=== PATIENT | male | born 1945 | race Caucasian/White ===

== ENCOUNTER → 2021-04-06 11:33 | Outpatient (BNVA) | payer MEDICARE, SELFPAY | PROVIDERS: Family Provider Family Medicine; Visit Provider Family Medicine | DX: I10 Essential (primary) hypertension (principal); Z00.00 Encounter for general adult medical examination without abnormal findings; Z85.828 Personal history of other malignant neoplasm of skin; G25.0 Essential tremor; K21.9 Gastro-esophageal reflux disease without esophagitis; Z68.25 Body mass index [BMI] 25.0-25.9, adult; F17.211 Nicotine dependence, cigarettes, in remission | CPT/HCPCS: 80053; 85025 ==

== ENCOUNTER 2023-12-06 10:26 | Outpatient (CLI) | payer MEDICARE, SELFPAY ==
--- NOTE | 2023-12-06 10:31 | XR_ITS ---
WS: [id number] XR thoracic spine 3V* [id number] REASON FOR EXAM: trauma 5 days prior, suspicion T10 Compression frx FINDINGS: Mild thoracic scoliosis convex right. Mild dorsal kyphosis. There is a mild concave compression deformity of the most inferior vertebral body imaged on the later al. Potentially this could represent an acute compression fracture of L1 however without demonstratin g the vertebral body below the compression deformity the level is not quite certain. A PA and lateral thoracolumbar junction images recommended to clearly define the level of abnormality. IMPRESSION: Probable acute compression fracture as above.
== END 2023-12-06 10:27 | disposition home or self-care (01) ==
LOC: RAD 10:27
PROVIDERS: Family Provider Family Medicine; PCP Family Medicine; Visit Provider Family Medicine
DX: S22.079A Unspecified fracture of T9-T10 vertebra, initial encounter for closed fracture (principal); X58.XXXA Exposure to other specified factors, initial encounter
CPT/HCPCS: 72072

== ENCOUNTER 2023-12-08 10:38 | Outpatient (CLI) | payer MEDICARE, SELFPAY ==
--- NOTE | 2023-12-08 10:43 | XR_ITS ---
WS: [id number] XR lumbar spine 2-3V* [id number] REASON FOR EXAM: S32.010A - Wedge compression fracture of first lumbar luisa... FINDINGS: Compression of the superior endplate of L1 with overriding of the remainder of the L1 vertebral body. Compatible with subacute compression fracture. The remainder of the lumbar examination demonstrates mild degenerative spondylosis without significan t malalignment. IMPRESSION: Subacute compression fracture of L1.
== END 2023-12-08 10:39 | disposition home or self-care (01) ==
LOC: RAD 10:39
PROVIDERS: Family Provider Family Medicine; PCP Family Medicine; Visit Provider Family Medicine
DX: S32.010A Wedge compression fracture of first lumbar vertebra, initial encounter for closed fracture (principal); X58.XXXA Exposure to other specified factors, initial encounter
CPT/HCPCS: 72100

== ENCOUNTER 2023-12-11 12:29 | Inpatient (IN) | payer MEDICARE, SELFPAY ==
[2023-12-11] VITALS (12 sets, daily range): BP systolic 125–178; BP diastolic 55–89; PULSE 69–92; RESP 16–18; TEMP 37–37.1; O2SAT 93–99; BMI 27.4
--- NOTE | 2023-12-11 12:51 | CTR_ITS ---
PROCEDURE INFORMATION: Exam: CT Lumbar Spine Without Contrast Exam date and time: 12/11/2023 1:28 PM Age: 78 years old Clinical indication: Low back pain; Patient HX: Back pain, fecal incontinence, ; additional info: Back pain - fecal incontinence TECHNIQUE: Imaging protocol: Computed tomography of the lumbar spine without contrast. Radiation optimization: All CT scans at this facility use at least one of these dose optimization techniques: automated exposure control; mA and/or kV adjustment per patient size (includes targeted exams where dose is matched to clinical indication); or iterative reconstruction. COMPARISON: CR XR lumbar spine 2-3V* [id number] 12/08/2023 11:15 AM RADIATION DOSE METRICS: Total DLP (mGy-cm): 870.3 FINDINGS: Bones/joints: L1 superior endplate compression deformity with mild height loss, no significant retropulsion. Mild multilevel spondylosis and facet arthropathy elsewhere. No severe canal stenosis. Soft tissues: No acute findings. CT/CT lumbar spine wo con* [id number] IMPRESSION: L1 compression deformity without retropulsion, age indeterminate.
--- NOTE | 2023-12-11 13:00 | ED_ITS ---
HPI - Abdominal Pain 2 General: Chief Complaint: Abdominal Pain Stated Complaint: severe back pain, loss control of bowel movements Time Seen by Provider: 12/11/23 12:51 Source: patient Mode of arrival: ambulatory History of Present Illness: 78-year-old male presents emergency room complaining of back pain. He was seen in an outside clinic after he had been pulling some wire felt a snapping sensation in his back and began to have severe pain they diagnosed compression fracture discharged home with pain medications. He is noticing a little bit of difficulty with urination and reports initially was constipated then he had a couple of episodes of fecal incontinence. He still has moderate amount of pain with some radiation of the lower extremities but has normal sensation and movement in the lower extremities at this time. MD elicited complaint: abdominal pain Associated Symptoms: Reports fecal incontinence; Denies anorexia, belching, bloating, change in bowel habits, change in stool character, chills, coffee ground emesis, constipation, GI cramping, diarrhea, dyspepsia, dysuria, excessive flatus, fever(s), heartburn, hematochezia, hematuria, hematemesis, loose stools, melena, nausea, poor appetite, syncope and vomiting Review of Systems 2 Const: Denies: fever(s) or chills Card: Denies: chest pain or syncope Resp: Denies: dyspnea GI: Reports: fecal incontinence; Denies: abdominal pain, nausea, vomiting, hematemesis, coffee ground emesis, heartburn, diarrhea, constipation, bloating, GI cramping, belching, excessive flatus, change in bowel habits, change in stool character, hematochezia or melena : Denies: dysuria, urinary frequency, urinary urgency or hematuria Musc: Reports: back pain; Denies: neck pain Skin/Breast: Denies: rash PFSH ED 2 PFSH: Medical History 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 GERD without esophagitis Essential tremor Social History Smoking and tobacco/nicotine status: former use of tobacco/nicotine Alcohol intake: current Substance/Drug Use: never Physical Exam 2 Const: GENERAL APPEARANCE: cooperative and comfortable O RIENTATION/CONSCIOUSNESS: Yes awake, Yes oriented to person, Yes oriented to place and Yes oriented to time HENMT: COMMON NORMALS: normocephalic, atraumatic and hearing grossly normal bilaterally HEAD & SCALP: normocephalic and atraumatic Resp: COMMON NORMALS: normal respiratory effort, No retractions, No use of accessory muscles and clear to auscultation bilaterally AUSCULTATION: clear to auscultation bilaterally Cardio: COMMON NORMALS: regular rate, regular rhythm and No murmurs present (Cardio) RATE: regular rate RHYTHM: regular rhythm GI: COMMON NORMALS: Soft to palpation and No hepatosplenomegaly present A USCULTATION: Yes normoactive bowel sounds PALPATION: Yes Soft to palpation, No Tenderness to palpation present (GI), No Guarding due to palpation present (GI) and Yes No hepatosplenomegaly present Extremity: COMMON NORMALS: normal to inspection, capillary refill normal, no clubbing, cyanosis or edema, no calf tenderness and no pedal edema Neuro: SENSORIUM/ORIENTATION: Yes oriented to person, Yes oriented to place and Yes oriented to time Skin: COMMON NORMALS: no rashes or lesions noted GENERAL SKIN EXAM: no rashes or lesions noted Course 2 Vital Signs: Vital signs: Vital Signs Temperature 98.8 F 12/11/23 12:38 Pulse Rate 78 12/11/23 17:42 Respiratory Rate 16 12/11/23 12:38 Blood Pressure 155/78 12/11/23 17:42 Pulse Oximetry 98 12/11/23 17:42 Oxygen Delivery Me thod Room Air 12/11/23 17:42 MDM - Abdominal Pain Medical Decision Making CT shows compression fracture with retropulsion. We were able to arrange for an MRI. No cauda equina syndrome read out on the MRI but does show retropulsion with central canal stenosis narrowing by 30 to 40%. His symptoms of fecal incontinence are very concerning and discussed with Dr. Calderón he is not on-call today but he was kind enough to discuss with me he will be available tomorrow and will see the patient tomorrow morning on consultation will admit to Dr. Troncoso for this evening for pain control. Due to inclement weather we are not able to transfer any patients out of town at this time. We had started to make phone calls to transfer but then were informed that we were not be able to transfer because of the weather facilities we did initially call had declined to take him to did not have beds available. By seeing Dr. Calderón in the morning and patient will have access to definitive care sooner than if transferred, since it is not likely we will be able to transfer to late tomorrow morning if we would find a bed available by which time Dr. Calderón would be available to see him Medical Records I reviewed the patient's medical records. Lab Data I reviewed the patient's lab results. 12/11/23 13:05 12/11/23 13:05 Labs/Radiology: Radiology Impressions Lumbar Spine CT 12/11/23 12:51 IMPRESSION: L1 compression deformity without retropulsion, age indeterminate. Lumbar Spine MRI 12/11/23 14:03 IMPRESSION: Mild compression fracture of L1. Signal abnormality is seen throughout the vertebral body. Posterior bulging of cortex is seen producing 30-40% narrowing of the AP diameter of the canal at the mid L1 level. Edema extends into the left L1 pedicle. Overall appearance raises question of pathologic fracture related to neoplasm. If vertebral augmentation is considered, biopsy should be obtained at this time. Otherwise a follow up examination is recommended in 2-3 months. Laboratory Results WBC 16.46 10^3/uL (3.29-11.43) H 12/11/23 13:05 RBC 5.28 10^6/uL (3.85-5.65) 12/11/23 13:05 Hgb 16.00 g/dL (11.27-16.99) 12/11/23 13:05 Hct 47.6 % (37-53) 12/11/23 13:05 MCV 90.2 fl (82-101) 12/11/23 13:05 MCH 30.3 pg (27-33) 12/11/23 13:05 MCHC 33.6 g/dL (30-55) 12/11/23 13:05 RDW 12.3 % (12.1-15.1) 12/11/23 13:05 Plt Count 423 10^3/cmm (157-399) H 12/11/23 13:05 MPV 10.5 fL (7.4-10.4) H 12/11/23 13:05 Neut % (Auto) 78.5 % 12/11/23 13:05 Lymph % (Auto) 11.9 % 12/11/23 13:05 [place]bot % (Auto) 8.4 % 12/11/23 13:05 Eos % (Auto) 0.1 % 12/11/23 13:05 Baso % (Auto) 0.3 % 12/11/23 13:05 Neut # (Auto) 12.93 10^3/uL (1.8-7.7) H 12/11/23 13:05 Lymph # (Auto) 2.0 10^3/uL (0.8-4.8) 12/11/23 13:05 [place]bot # (Auto) 1.4 10^3/uL (0.2-0.9) H 12/11/23 13:05 Eos # (Auto) 0.0 10^3/uL (0.0-0.8) 12/11/23 13:05 Baso # (Auto) 0.1 10^3/uL (0.0-0.1) 12/11/23 13:05 Nucleated RBC % (auto) 0 % 12/11/23 13:05 Nucleated RBCs # 0.0 /100WBC 12/11/23 13:05 Sodium 128 mmol/L (136-145) L 12/11/23 13:05 Potassium 4.6 mmol/L (3.5-5.1) 12/11/23 13:05 Chloride 94 mmol/L (98-107) L 12/11/23 13:05 Carbon Dioxide 23 mmol/L (22-29) 12/11/23 13:05 Anion Gap 15.6 (5-19) 12/11/23 13:05 BUN 23 mg/dL (8-23) 12/11/23 13:05 Creatinine 0.9 mg/dL (0.7-1.2) 12/11/23 13:05 GFR Calculation Not Reportable 12/11/23 13:05 Glucose 157 mg/dL (65-115) H 12/11/23 13:05 Calculated Osmolality 273 mOsm/kg (285-295) L 12/11/23 13:05 Calcium 9.4 mg/dL (8.5-10.5) 12/11/23 13:05 Total Bilirubin 0.7 mg/dL (0.15-1.2) 12/11/23 13:05 AST 50 U/L (0-40) H 12/11/23 13:05 ALT 59 U/L (0-41) H 12/11/23 13:05 Alkaline Phosphatase 252 U/L (40-130) H 12/11/23 13:05 Total Protein 8.4 g/dL (6.6-8.7) 12/11/23 13:05 Albumin 3.9 g/dL (3.5-5.2) 12/11/23 13:05 Globulin 4.5 g/dL (1.3-4.6) 12/11/23 13:05 Lipase 19 U/L (13-60) 12/11/23 13:05 Urine Color Yellow (Yellow) 12/11/23 16:44 Urine Appearance Clear (CLEAR) 12/11/23 16:44 Urine pH 5 (5-7) 12/11/23 16:44 Ur Specific [place] 1.010 (1.005-1.030) 12/11/23 16:44 Urine Protein Neg (Negative) 12/11/23 16:44 Urine Glucose (UA) Norm (Normal) 12/11/23 16:44 Urine Ketones 1+ (Negative) H 12/11/23 16:44 Urine Blood Neg (Negative) 12/11/23 16:44 Urine Nitrate Negative (Negative) 12/11/23 16:44 Urine Bilirubin 1+ (Negative) H 12/11/23 16:44 Urine Urobilinogen 1 mg/dL (Negative) H 12/11/23 16:44 Ur Leukocyte Esterase Negative (Negative) 12/11/23 16:44 All radiology interpretation(s) finalized by discharge Discharge Plan Discharge Condition: Stable Prescriptions: No Action triamcinolone acetonide 0.1 % cream 1 applic topical BID PRN (Reason: itching rash) Qty: 80 2RF methocarbamol 750 mg tablet 750 mg PO Q8H Qty: 30 0RF omeprazole 20 mg capsule,delayed release(DR/EC) 20 mg PO DAILY Qty: 90 3RF propranolol 10 mg tablet See Rx Instructions .ROUTE .COMPLEX Qty: 810 2RF Dose Instruction: TAKE 3 TABLETS BY MOUTH THREE TIMES DAILY Rx Instructions: TAKE 3 TABLETS BY MOUTH THREE TIMES DAILY hydrocodone-acetaminophen 10-325 mg tablet 1 tab PO Q6H PRN (Reason: pain) 10 Days Qty: 40 0RF Referrals: Francis,Druery, MD [Primary Care Provider] - Coding Level of Care Code ED Contract Consultant for Bridger Brown
[2023-12-11 13:38] LABS: Basophils # 0.1 10^3/uL (0.0-0.1); Basophils % 0.3 %; Eosinophils % 0.1 %; Hematocrit 47.6 % (37-53); Lymphocytes % 11.9 %; Mean Corpuscular HGB Conc 33.6 g/dL (30-55); Mean Corpuscular Hemoglobin 30.3 pg (27-33); Mean Corpuscular Volume 90.2 fl (82-101); Mean Platelet Volume 10.5 fL (7.4-10.4); Monocytes # 1.4 10^3/uL (0.2-0.9); Monocytes % 8.4 %; Neutrophils # 12.93 10^3/uL (1.8-7.7); Neutrophils % 78.5 %; Nucleated Red Blood Cells % 0 %; Platelet Count 423 10^3/cmm (157-399); Red Blood Count 5.28 10^6/uL (3.85-5.65); Red Cell Distribution Width 12.3 % (12.1-15.1); White Blood Count 16.46 10^3/uL (3.29-11.43)
[2023-12-11 14:02] LABS: Alanine Aminotransferase 59 U/L (0-41); Albumin Level 3.9 g/dL (3.5-5.2); Alkaline Phosphatase 252 U/L (40-130); Anion Gap 15.6 (5-19); Aspartate Amino Transferase 50 U/L (0-40); Blood Urea Nitrogen 23 mg/dL (8-23); Calcium 9.4 mg/dL (8.5-10.5); Carbon Dioxide 23 mmol/L (22-29); Chloride 94 mmol/L (98-107); Globulin 4.5 g/dL (1.3-4.6); Glucose 157 mg/dL (65-115); Lipase 19 U/L (13-60); Osmolality Calculated 273 mOsm/kg (285-295); Potassium 4.6 mmol/L (3.5-5.1); Sodium 128 mmol/L (136-145); Total Bilirubin 0.7 mg/dL (0.15-1.2); Total Protein 8.4 g/dL (6.6-8.7)
--- NOTE | 2023-12-11 14:03 | MRR_ITS ---
PROCEDURE INFORMATION: Exam: MR Lumbar Spine Without Contrast. Exam date and time: 12/11/2023 2:36 PM Age: 78 years old Clinical indication: Other: Fecal incontenence; Low back pain; Additional info: Lumbar spine w retropulsion, fecal incontinence TECHNIQUE: Imaging protocol: Magnetic resonance imaging of the lumbar spine without contrast. COMPARISON: CT lumbar spine wo con* [id number] 12/11/2023 1:28 PM FINDINGS: Bones/joints: Lower lumbar degenerative disc disease and facet arthropathy without stenosis or neural foraminal narrowing. Mild compression fracture of L1. Signal abnormality is seen throughout the vertebral body. Posterior bulging of cortex is seen producing 30-40% narrowing of the AP diameter of the canal at the mid L1 level. Edema extends into the left L1 pedicle. Spinal cord: Conus terminates normally at L1. Soft tissues: Unremarkable. MR/MR lumbar spine wo con* [id number] IMPRESSION: Mild compression fracture of L1. Signal abnormality is seen throughout the vertebral body. Posterior bulging of cortex is seen producing 30-40% narrowing of the AP diameter of the canal at the mid L1 level. Edema extends into the left L1 pedicle. Overall appearance raises question of pathologic fracture related to neoplasm. If vertebral augmentation is considered, biopsy should be obtained at this time. Otherwise a follow up examination is recommended in 2-3 months.
[2023-12-11] MEDS: ondansetron 2 mg/ML SDV 2 mL 4 MG IVP (16:48)
[2023-12-11] MEDS: dexamethasone 10 mg/mL INJ IM (16:49)
[2023-12-11] MEDS: morphine 4 mg/mL SDV 1 mL IVP (16:55)
[2023-12-11 16:59] LABS: Add Urine Microscopic? NO; Charge for UA Resulting for Rev
[2023-12-11 17:12] LABS: Glucose Urine UA Norm (Normal); Protein Urine Neg (Negative); Urine Appearance Clear (CLEAR); Urine Color Yellow (Yellow); pH Urine 5 (5-7)
[2023-12-11 17:13] LABS: Bilirubin Urine 1+ (Negative); Blood Urine Neg (Negative); Ketones Urine 1+ (Negative); Leukocyte Esterase Urine Negative (Negative); Nitrate Urine Negative (Negative); Urobilinogen Urine 1 mg/dL (Negative)
--- NOTE | 2023-12-11 17:42 | USR_ITS ---
PROCEDURE INFORMATION: Exam: US Abdomen, Limited; Right Upper Quadrant Exam date and time: 12/11/2023 6:31 PM Age: 78 years old Clinical indication: Abdominal pain; Generalized; Additional info: Elevated lft TECHNIQUE: Imaging protocol: Real time ultrasound of the abdomen with image documentation. Limited exam focused on the right upper quadrant. COMPARISON: [place] [id number] 12/11/2023 6:16 PM FINDINGS: Liver: Liver is unremarkable in overall size. There are numerous circumscribed hypodense liver lesions of varying sizes superimposed on diffuse fatty infiltration highly suspicious for multiple liver metastasis. Gallbladder: Gallbladder is mildly distended. There is no wall thickening or pericholecystic fluid. There are no gallstones. Ultrasonic Finn sign was not recorded.. Biliary ducts: Common bile duct is not dilated measuring 5 mm. Pancreas: Pancreas is poorly visualized limiting its assessment. Right kidney: Right kidney is unremarkable. US/US gall bladder 00003 IMPRESSION: 1. Multiple hypoechoic liver lesions likely metastatic in nature superimposed on diffuse fatty infiltration. 2. Mildly distended gallbladder which is otherwise unremarkable. 3. Limited assessment of the pancreas.
--- NOTE | 2023-12-11 17:54 | CTR_ITS ---
PROCEDURE INFORMATION: Exam: CT Chest Without Contrast; Diagnostic Exam date and time: 12/11/2023 6:16 PM Age: 78 years old Clinical indication: Pain; Other: Low back; Chest pressure; Patient HX: L1 compression fracture concern for it being pathologic, HX of melanoma; Additional info: Pathologic fracture? TECHNIQUE: Imaging protocol: Diagnostic computed tomography of the chest without contrast. Radiation optimization: All CT scans at this facility use at least one of these dose optimization techniques: automated exposure control; mA and/or kV adjustment per patient size (includes targeted exams where dose is matched to clinical indication); or iterative reconstruction. COMPARISON: CR XR thoracic spine 3V* [id number] 12/06/2023 10:50 AM RADIATION DOSE METRICS: Total DLP (mGy-cm): 878.63 FINDINGS: Lungs: Minor atelectatic changes right lung base otherwise lung koenig are clear. No suspicious nodules or masses detected. Pleural spaces: Unremarkable. No pneumothorax. No pleural effusion. Heart: Heart is not significantly enlarged. No significant coronary artery calcifications. No significant pericardial effusion. Lymph nodes: Unremarkable. No enlarged lymph nodes. Vasculature: Unremarkable. No aortic aneurysm. Bones/joints: Accentuated kyphotic curvature with mild degenerative changes throughout the thoracic spine. No suspicious bone lesions detected. Soft tissues: Unremarkable. PROCEDURE INFORMATION: Exam: CT Abdomen And Pelvis Without Contrast Exam date and time: 12/11/2023 6:16 PM Age: 78 years old Clinical indication: Pain; Other: Low back; Chest pressure; Patient HX: L1 compression fracture concern for it being pathologic, HX of melanoma; Additional info: Pathologic fracture? TECHNIQUE: Imaging protocol: Computed tomography of the abdomen and pelvis without contrast. Radiation optimization: All CT scans at this facility use at least one of these dose optimization techniques: automated exposure control; mA and/or kV adjustment per patient size (includes targeted exams where dose is matched to clinical indication); or iterative reconstruction. COMPARISON: MR lumbar spine wo con* [id number] 12/11/2023 2:36 PM RADIATION DOSE METRICS: Total DLP (mGy-cm): 878.63 FINDINGS: Lungs: Lung bases are clear. Liver: Normal. No mass. Gallbladder and bile ducts: Gallbladder is mildly distended which may be due to prolonged fasting. Pancreas: Normal. No ductal dilation. Spleen: Normal. No splenomegaly. Adrenal glands: Normal. No mass. Kidneys and ureters: 4 cm left renal cyst likely benign based on density readings. Right kidney is unremarkable. Stomach and bowel: Moderate degree of retained stool throughout the colon which may reflect some degree of constipation. Scattered diverticula sigmoid colon without evidence of acute diverticulitis. Appendix: No evidence of appendicitis. Intraperitoneal space: Unremarkable. No free air. No significant fluid collection. Vasculature: Scattered atherosclerotic changes of the abdominal aorta and iliac vessels. No aortic aneurysm. Lymph nodes: Unremarkable. No enlarged lymph nodes. Urinary bladder: Unremarkable as visualized. Reproductive: Prostate gland is mildly enlarged. Bones/joints: There is a mild biconcave compression fracture of L1 vertebral body which has a mottled appearance with mixed radiolucency and sclerotic bone changes concerning for pathological fracture possibly from bone metastasis. Remainder of the osseous structures are unremarkable. Soft tissues: Unremarkable. CT/[place] [id number] IMPRESSION: 1. No acute abnormalities within the chest. 2. No evidence of metastatic disease within the chest. IMPRESSION: 1. Mild compression fracture of L1 with additional bone changes involving the vertebral body concerning for pathological fracture possibly secondary to bone metastasis. 2. Nonemergent findings as above. COMMENTS: Consistent with the [employer]'s Incidental Findings Committee white paper (J Am Estefany Radiol 2018): Any incidental renal lesion less than 1 cm or classified as too small to characterize, or any incidental cystic renal lesion characterized as simple-appearing, is likely benign. No follow-up imaging is recommended for these lesions per consensus recommendations based on imaging criteria.
[2023-12-11 18:06] LABS: Erythrocyte Sedimentation Rate 58 mm/hr (0-10)
--- NOTE | 2023-12-11 18:14 | CTR_ITS ---
PROCEDURE INFORMATION: Exam: CT Head Without Contrast Exam date and time: 12/11/2023 6:19 PM Age: 78 years old Clinical indication: Visual disturbance; Patient HX: HX melanoma and possible l1 pathologic FX; Additional info: Diplopia TECHNIQUE: Imaging protocol: Computed tomography of the head without contrast. Radiation optimization: All CT scans at this facility use at least one of these dose optimization techniques: automated exposure control; mA and/or kV adjustment per patient size (includes targeted exams where dose is matched to clinical indication); or iterative reconstruction. COMPARISON: No relevant prior studies available. RADIATION DOSE METRICS: Total DLP (mGy-cm): 1219.79 FINDINGS: Brain: There is no acute intracranial hemorrhage, cerebral edema, or midline shift. Chronic microvascular ischemic changes are seen in the periventricular white matter. Age-related cerebral and cerebellar volume loss is present. Cerebral ventricles: No hydrocephalus. Paranasal sinuses: There is no acute sinusitis. Mastoid air cells: The mastoid air cells are clear. Orbital cavities: The included orbital structures are unremarkable. Bones/joints: No acute fracture. Soft tissues: Unremarkable. Vasculature: Atherosclerotic calcifications are seen involving the cavernous carotid arteries. CT/CT head wo con* [id number] IMPRESSION: 1. No acute intracranial abnormality. 2. Atrophy and chronic deep white matter ischemic changes.
[2023-12-11 18:16] LABS: C Reactive Protein 61.8 mg/L (0.0-4.9)
--- NOTE | 2023-12-11 18:17 | P.HP_ITS ---
Providers/Chief Complaint 2 Primary Care Provider: Beau Francis MD Chief Complaint: severe back pain, loss control of bowel movements History of Present Illness Lg Crabtree is a 78 year old male with a past medical history of benign essential tremor, history of skin cancer on his back status post resection, basal cell carcinoma GERD, who presents to [facility] for acute back pain, with stool incontinence. On 12/03/2023, patient was working outside, and he was pulling on his metal wire on his fence, when he suddenly felt a pop in his back, immediately had low back pain, more on the right side, the pain did not radiate down his extremities, no numbness, no paresthesias, no difficulty walking, no saddle perianal anesthesia, no urinary continence, no bowel incontinence. Due to persistent pain, he is followed up with his primary care provider, has been on NSAIDs, without improvement of his pain, has been placed on hydrocodone, methocarbamol, however continue to have pain. The reason he comes to the emergency room tonight, the pain lower back pain has become much more severe at much more constant, now associated with stool incontinence, no urinary continence, no saddle or perianal anesthesia, no paresthesias, he walked into the emergency room, did feel unsteady on his feet, but was still able to walk into the emergency room. Lumbar MRI MR/MR lumbar spine wo con* [id number] IMPRESSION: Mild compression fracture of L1. Signal abnormality is seen throughout the vertebral body. Posterior bulging of cortex is seen producing 30-40% narrowing of the AP diameter of the canal at the mid L1 level. Edema extends into the left L1 pedicle. Overall appearance raises question of pathologic fracture related to neoplasm. If vertebral augmentation is considered, biopsy should be obtained at this time. Otherwise a follow up examination is recommended in 2-3 months. -ER provider spoke to Dr. Calderón, Dr. Calderón is on consult tomorrow, Dr. Calderón agreed to see patient tomorrow morning, there was certainly a concern for cauda equina syndrome, however there is no MRI evidence of it ER provider told me, and given that [facility] is not transferring any patients given this snowstorm outside, patient would have better luck seeing a spinal surgeon here at [facility] than wait to be possibly transfer to tertiary level center, I spoke to patient, about this, and he is agreeable to stay here at [facility], I am certainly concerned about his bowel incontinence, but he does not have any other alarm symptoms, his pain is currently under control, and I have messaged Dr. Calderón and is agreed to see patient in the morning, patient has received Decadron, has received pain control, patient understands morbidity mortality associated with his MRI findings, discussed risk and benefits, shared decision making, he voiced understanding, all questions answered, agreed to stay here at [facility] -On examination, patient has significant abdominal distention, with fluid wave present, he denies a history of alcoholism, he tells me that typically it takes him a few weeks to drink a sixpack of alcohol, his white count was 16,000 he has elevated AST at 50, ALT of 59 elevated alk phos of 252, bilirubin within normal limits, on examination patient has significant right upper quadrant tenderness, Patient also tells me that he has been having intermittent diplopia, denies any facial droop, no slurring of words, no focal weakness, no focal paresthesias, he has been noticing it for the last 24 hours, no headache, no blurry vision Review of Systems 2 Card: Denies: chest pain Resp: Denies: dyspnea GI: Reports: abdominal pain and nausea : Reports: difficulty urinating; Denies: flank pain Musc: Reports: back pain Neuro: Denies: headache(s), numbness in extremities, weakness in extremities, lack of coordination, difficulty walking, frequent falls, confusion, Slurred speech present, difficulty communicating thoughts, seizure-like activity or restless legs Endo: Denies: polyuria Medications/Allergies Home Medications Medication Instructions Recorded Confirmed Last Taken Type triamcinolone acetonide 0.1 % 1 applic topical BID PRN itching 08/10/21 12/06/23 Unknown Rx topical cream rash #80 grams omeprazole 20 mg capsule,delayed 20 mg PO DAILY #90 caps 03/29/23 12/06/23 Unknown Rx release propranolol 10 mg tablet See Rx Instructions .Route 09/08/23 12/06/23 Unknown Rx .COMPLEX #810 tabs methocarbamol 750 mg tablet 750 mg PO Q8H #30 tabs 12/03/23 12/06/23 Unknown Rx hydrocodone 10 mg-acetaminophen 1 tab PO Q6H PRN pain 10 days #40 12/07/23 Unknown Rx 325 mg tablet tabs Allergies Allergy/AdvReac Type Severity Reaction Status Date / Time No Known Allergies Allergy Verified 12/06/23 09:28 PFSH Acute 2 PFSH: Medical History 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 GERD without esophagitis Essential tremor Social History Smoking and tobacco/nicotine status: former use of tobacco/nicotine Alcohol intake: current Substance/Drug Use: never Vitals/I&O/Wt Last Vital Signs Temp 98.8 F 12/11/23 12:38 Pulse 78 12/11/23 17:42 Resp 16 12/11/23 12:38 BP 155/78 12/11/23 17:42 Pulse Ox 98 12/11/23 17:42 O2 Del Method Room Air 12/11/23 17:42 Weight last 48 hrs Weight 77.111 kg Physical Exam 2 Const: COMMON NORMALS: no acute distress and patient oriented x3 HENMT: COMMON NORMALS: normocephalic HEAD & SCALP: normocephalic Eye: COMMON NORMALS: Equal, round and reactive pupils present and EOMs intact bilaterally Neck/C-Spine: COMMON NORMALS: no JVD Lymph: LYMPHATIC: no lymphadenopathy noted Resp: COMMON NORMALS: normal respiratory effort, No retractions, No use of accessory muscles and clear to auscultation bilaterally AUSCULTATION: clear to auscultation bilaterally Cardio: COMMON NORMALS: no JVD, regular rate, regular rhythm, S1 normal heart sound present and S2 normal heart sound present RATE: regular rate RHYTHM: regular rhythm HEART SOUNDS: S1 normal heart sound present and S2 normal heart sound present GI: COMMON NORMALS: Normal to inspection, nondistended, normoactive bowel sounds present, Soft to palpation, non-tender, No hepatosplenomegaly present, no masses and no bruits PALPATION: Yes Soft to palpation Extremity: COMMON NORMALS: capillary refill normal, no clubbing, cyanosis or edema, no calf tenderness and no pedal edema Neuro: COMMON NORMALS: patient oriented x3, CN's II-XII intact bilaterally, moves all extremities and no focal motor deficits OTHER: Good strength in bilateral lower extremities, equal, no paresthesias, no loss of sensation, bilateral lower extremity to fine touch Psych: COMMON NORMALS: mental status grossly normal Data 12/11/23 13:05 12/11/23 13:05 A&P Assessment and plan (1) Compression fracture of L1 lumbar vertebra: (2) Intractable pain: (3) Stool incontinence: (4) Right upper quadrant pain: (5) Diplopia: Plan L1 compression vertebral fracture -With intractable pain -With stool incontinence MR/MR lumbar spine wo con* [id number] IMPRESSION: Mild compression fracture of L1. Signal abnormality is seen throughout the vertebral body. Posterior bulging of cortex is seen producing 30-40% narrowing of the AP diameter of the canal at the mid L1 level. Edema extends into the left L1 pedicle. Overall appearance raises question of pathologic fracture related to neoplasm. If vertebral augmentation is considered, biopsy should be obtained at this time. Otherwise a follow up examination is recommended in 2-3 months. Plan -Dr. Calderón has been consulted, will see patient in the morning -N.p.o. midnight -Hold Lovenox for DVT prophylaxis and plans for surgery tomorrow, SCDs for DVT prophylaxis -Decadron 10 mg IV push every 24 hours -Morphine 2 mg IV push every 4 as needed for pain -Full code SCDs for DVT prophylaxis Place Hansen catheter Right upper quadrant pain, with transaminitis, elevated alk phos -CT scan abdomen pelvis -Upper quadrant ultrasound Concerns for pathologic fracture -History of skin cancer, history of smoking -CT chest abdomen pelvis, Complaints of diplopia -NIH stroke scale, neurochecks, aspiration precautions -No facial droop, slurring words, no focal weakness, NIH stroke scale 0 -CT of the head Attestations 2 Medical Necessity Statement*: Patient requires hospitalization, inpatient, greater than 2 midnights, for right upper quadrant pain, concern for pathologic fracture, diplopia, L1 compression vertebral fracture with stool incontinence Diagnoses Compression fracture of L1 lumbar vertebra S32.010A Intractable pain R52 Stool incontinence R15.9 Right upper quadrant pain R10.11 Diplopia H53.2
[2023-12-11 18:23] LABS: Procalcitonin 0.37 ng/mL (0-0.5)
[2023-12-11 18:45] LABS: INR 1.08 (0.8-1.2)
[2023-12-11] MEDS: sodium chloride 0.9% 1,000 ML 100 ML IV (21:07)
[2023-12-11] MEDS: pantoprazole 40 mg SDV IVP (21:08)
[2023-12-11] MEDS: morphine 4 mg/mL SDV 1 mL 2 MG IVP (21:08)
[2023-12-11 21:27] LABS: Estmated Average Glucose 163; Hemoglobin A1C 7.3 % (4.0-6.0)
[2023-12-11 21:49] LABS: Thyroid Stimulating Hormone 0.49 uIU/mL (0.27-4.20)
[2023-12-12] VITALS (22 sets, daily range): BP systolic 124–179; BP diastolic 63–95; PULSE 62–101; RESP 16–19; TEMP 36.6–37.1; O2SAT 92–99
[2023-12-12 05:27] LABS: Basophils % 0.1 %; Hematocrit 41.3 % (37-53); Lymphocytes # 1.1 10^3/uL (0.8-4.8); Lymphocytes % 8.9 %; Mean Corpuscular HGB Conc 33.7 g/dL (30-55); Mean Corpuscular Hemoglobin 30.6 pg (27-33); Mean Platelet Volume 10.4 fL (7.4-10.4); Monocytes # 0.4 10^3/uL (0.2-0.9); Neutrophils # 11.24 10^3/uL (1.8-7.7); Neutrophils % 87.5 %; Nucleated Red Blood Cells % 0 %; Platelet Count 320 10^3/cmm (157-399); Red Blood Count 4.54 10^6/uL (3.85-5.65); Red Cell Distribution Width 12.6 % (12.1-15.1); White Blood Count 12.85 10^3/uL (3.29-11.43)
[2023-12-12 06:00] LABS: Alanine Aminotransferase 47 U/L (0-41); Albumin Level 3.4 g/dL (3.5-5.2); Alkaline Phosphatase 194 U/L (40-130); Anion Gap 16.1 (5-19); Aspartate Amino Transferase 39 U/L (0-40); Blood Urea Nitrogen 22 mg/dL (8-23); Carbon Dioxide 24 mmol/L (22-29); Chloride 100 mmol/L (98-107); Globulin 3.6 g/dL (1.3-4.6); Glucose 211 mg/dL (65-115); Magnesium 2.6 mg/dL (1.7-2.3); Osmolality Calculated 290 mOsm/kg (285-295); Phosphorus 3.3 mg/dL (2.5-4.5); Potassium 5.1 mmol/L (3.5-5.1); Sodium 135 mmol/L (136-145); Total Bilirubin 0.4 mg/dL (0.15-1.2)
[2023-12-12] MEDS: sodium chloride 0.9% 1,000 ML 100 ML IV ×2 (06:54→16:33)
--- NOTE | 2023-12-12 06:54 | P.CONIM_ITS ---
Providers/Reason For Consult 2 Consulting Physician/Specialty*: Hospitalist Reason for Consult*: L1 compression fracture possibly pathologic Attending Physician: Paramjit Troncoso MD Primary Care Provider: Beau Francis MD History of Present Illness History of Present Illness Lg Crabtree is a 78 year old male possibly 9 days ago felt a pop in his back has been having pain ever since. Patient has also developed incontinence of stool. Patient does not have any weakness or numbness in his legs urination is fine. Review of Systems 2 Card: Denies: chest pain Resp: Denies: dyspnea GI: Reports: abdominal pain and nausea : Reports: difficulty urinating; Denies: flank pain Musc: Reports: back pain Neuro: Denies: headache(s), numbness in extremities, weakness in extremities, lack of coordination, difficulty walking, frequent falls, confusion, Slurred speech present, difficulty communicating thoughts, seizure-like activity or restless legs Endo: Denies: polyuria Medications/Allergies Home Medications Medication Instructions Recorded Confirmed Last Taken Type omeprazole 20 mg capsule,delayed 20 mg PO DAILY #90 caps 03/29/23 12/11/23 12/10/23 Rx release propranolol 10 mg tablet See Rx Instructions .Route 09/08/23 12/11/23 12/10/23 Rx .COMPLEX #810 tabs methocarbamol 750 mg tablet 750 mg PO Q8H #30 tabs 12/03/23 12/11/23 12/10/23 Rx hydrocodone 10 mg-acetaminophen 1 tab PO Q6H PRN pain 10 days #40 12/07/23 12/11/23 12/10/23 Rx 325 mg tablet tabs ibuprofen 400 mg tablet 400 mg PO Q6H PRN Pain 12/11/23 12/11/23 12/11/23 History Allergies Allergy/AdvReac Type Severity Reaction Status Date / Time No Known Allergies Allergy Verified 12/06/23 09:28 Current Medications Generic Name Dose Route Start Last Admin Trade Name Freq PRN Reason Stop Dose Admin Sodium Chloride 1,000 mls @ 100 mls/hr 12/11/23 20:43 12/12/23 06:54 Sodium Chloride 0.9% IV 100 mls/hr .Q10H SHIVA Administration Morphine Sulfate 2 mg 12/11/23 20:43 12/11/23 21:08 Morphine 4 Mg/Ml Sdv 1 Ml IVP 2 mg Q4H PRN Administration SEVERE PAIN Pantoprazole Sodium 40 mg 12/11/23 20:43 12/11/23 21:08 Pantoprazole 40 Mg Sdv IVP 40 mg Q24H SHIVA Administration PFSH Acute 2 PFSH: Medical History 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 GERD without esophagitis Essential tremor Social History Smoking and tobacco/nicotine status: former use of tobacco/nicotine Alcohol intake: current Substance/Drug Use: never Vitals/I&O/Wt Last Vital Signs Temp 97.9 F 12/12/23 04:00 Pulse 84 12/12/23 04:00 Resp 17 12/12/23 04:00 BP 154/73 12/12/23 04:00 Pulse Ox 95 12/12/23 04:00 O2 Del Method Room Air 12/12/23 04:00 12/11/23 12/11/23 12/12/23 14:59 22:59 06:59 Intake Total 978.333 / 978.333 Output Total 350 / 350 Balance 628.333 / 628.333 Weight last 48 hrs Weight 170 lb Weight 170 lb Weight 170 lb Physical Exam 2 Narrative: Patient pain is controlled while laying in bed. Urinary Catheter Management: Hansen: Cath Placed During This Visit: yes Reason for Continuing Indwelling Catheter: Acute Urinary Retention or Obstruction Urinary Catheter Date of Insertion: 12/11/23 Urinary Catheter Time of Insertion: 22:06 Data 12/12/23 05:18 12/12/23 05:18 A&P Assessment and plan (1) Compression fracture of L1 lumbar vertebra: At this point I do not feel that the degree of compression into the spinal canal is causing the bowel incontinence. My plan would be to do a kyphoplasty and get a biopsy of the area to determine if there is a pathologic fracture. I do not think this will help with his bowel incontinence however. Discussed with the patient doing a kyphoplasty agreed to proceed. I had an open and honest discussion with the patient about the risks, benefits and alternatives to both surgical and nonsurgical treatment. The patient verbalized understanding of the inherent unpredictability associated with surgery. Risk of surgery were discussed including, but not limited to, infection, bleeding, temporary and permanent nerve damage, continued pain, stiffness, incomplete healing, need for revision surgery, blood clot and other complications. The patient verbalized understanding that there is spine is elective in nature and if they find any of these risks to be unacceptable then they should choose not to have the surgery. The patient verbalized understanding of these risks and elected to proceed with the surgery. Qualifiers: Encounter type: initial encounter Qualified Code(s): S32.010A - Wedge compression fracture of first lumbar vertebra, initial encounter for closed fracture Consult Attestations 2 Medical Necessity Statement: Per primary service Coding Level of Care Code Acute Code for Chg Fwd Diagnoses Compression fracture of L1 vertebra, initial encounter S32.010A Encounter type: initial encounter
--- NOTE | 2023-12-12 07:04 | SC_ITS ---
WS: [id number] Exam: C-arm FL for Kyphoplasty Date/Time of Exam: 12/12/2023 7:04 AM Reason For Exam: L1 compression fracture Single intraoperative AP view of the upper lumbar spine submitted for evaluation. Signs of kyphoplast y involving the L1 vertebra. No other significant finding on this limited study.
[2023-12-12] MEDS: morphine 4 mg/mL SDV 1 mL 2 MG IVP (11:40)
[2023-12-12] MEDS: dexamethasone 10 mg/mL INJ IVP (11:40)
[2023-12-12] MEDS: sodium chloride 0.9% 1,000 ML 30 ML IV (12:04)
--- NOTE | 2023-12-12 12:09 | SUR.PREOP ---
ROM AND SENSATION IN ALL 4 EXTREMITIES.
--- NOTE | 2023-12-12 12:37 | P.ANESASSM_ITS ---
Pre-Anesthetic Assessment Height/Weight: Height 1.68 m Weight 77.111 kg Temp Pulse Resp BP Pulse Ox O2 Del Method 98.8 F 84 18 155/77 93 Room Air 12/12/23 11:59 12/12/23 11:59 12/12/23 11:59 12/12/23 11:59 12/12/23 11:59 12/12/23 11:59 Preop Diagnosis: L1 compression fracture Operation Date: 12/12/23 16:50 Proposed Procedures p L1 kyphoplasty with biopsy, possible osteocool(Not Applicable) - Zane Calderón, DO Familial anesthetic complications: None Was Beta Debby taken within 24 hours: N/A Was Clonidine taken within 24 hours: N/A Last intake: Intake Last Liquid Date 12/11/23 Last Liquid Time 23:50 Last Solid Date 12/11/23 Last Solid Time 21:00 Social No alcohol and No tobacco Exam alert, oriented x 3, clear to auscultation bilaterally and regular rate & rhythm Airway Mallampati: Class I Dentition: full CV/HEM Hypertension GI Gastroesophageal Reflux Disease Neuropsych propanolol for tremors, hasn't taken in several days Anesthetic Plan ASA status: 2 Anesthesia: General Risk of > 500 ml blood loss (7ml/kg in children): No Medications/Allergies Home Medications Medication Instructions Recorded Confirmed Last Taken Type omeprazole 20 mg capsule,delayed 20 mg PO DAILY #90 caps 03/29/23 12/11/23 12/10/23 Rx release propranolol 10 mg tablet See Rx Instructions .Route 09/08/23 12/11/23 12/10/23 Rx .COMPLEX #810 tabs methocarbamol 750 mg tablet 750 mg PO Q8H #30 tabs 12/03/23 12/11/23 12/10/23 Rx hydrocodone 10 mg-acetaminophen 1 tab PO Q6H PRN pain 10 days #40 12/07/23 12/11/23 12/10/23 Rx 325 mg tablet tabs ibuprofen 400 mg tablet 400 mg PO Q6H PRN Pain 12/11/23 12/11/23 12/11/23 History Allergies Allergy/AdvReac Type Severity Reaction Status Date / Time No Known Allergies Allergy Verified 12/06/23 09:28 Current Medications Generic Name Dose Route Start Last Admin Trade Name Freq PRN Reason Stop Dose Admin Dexamethasone 10 mg 12/12/23 08:00 12/12/23 11:40 Dexamethasone 10 Mg/Ml Inj IVP 10 mg Q24H SHIVA Administration Sodium Chloride 1,000 mls @ 100 mls/hr 12/11/23 20:43 12/12/23 06:54 Sodium Chloride 0.9% IV 100 mls/hr .Q10H SHIVA Administration Sodium Chloride 1,000 mls @ 30 mls/hr 12/12/23 12:00 12/12/23 12:04 Sodium Chloride 0.9% IV 12/13/23 11:59 30 mls/hr .Q24H SHIVA Administration Morphine Sulfate 2 mg 12/11/23 20:43 12/12/23 11:40 Morphine 4 Mg/Ml Sdv 1 Ml IVP 2 mg Q4H PRN Administration SEVERE PAIN Pantoprazole Sodium 40 mg 12/11/23 20:43 12/11/23 21:08 Pantoprazole 40 Mg Sdv IVP 40 mg Q24H SHIVA Administration PFSH Anesthesia Medical History 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 GERD without esophagitis Essential tremor Social History Smoking and tobacco/nicotine status: former use of tobacco/nicotine Alcohol intake: current Substance/Drug Use: never Data Anesthesia 12/12/23 05:18 12/12/23 05:18 Short CBC 12/11/23 12/12/23 Range/Units 13:05 05:18 WBC 16.46 H 12.85 H (3.29-11.43) 10^3/uL Hgb 16.00 13.90 (11.27-16.99) g/dL Hct 47.6 41.3 (37-53) % MCV 90.2 91.0 (82-101) fl Plt Count 423 H 320 (157-399) 10^3/cmm Neut % (Auto) 78.5 87.5 % Neut # (Auto) 12.93 H 11.24 H (1.8-7.7) 10^3/uL BMP 12/11/23 12/12/23 13:05 05:18 Sodium 128 L 135 L Potassium 4.6 5.1 Chloride 94 L 100 Carbon Dioxide 23 24 BUN 23 22 Creatinine 0.9 0.9 Glucose 157 H 211 H Calcium 9.4 9.0 Liver Function 12/11/23 12/12/23 Range/Units 13:05 05:18 Total Bilirubin 0.7 0.4 (0.15-1.2) mg/dL AST 50 H 39 (0-40) U/L ALT 59 H 47 H (0-41) U/L Alkaline Phosphatase 252 H 194 H (40-130) U/L Albumin 3.9 3.4 L (3.5-5.2) g/dL Urine 12/11/23 Range/Units 16:44 Urine Color Yellow (Yellow) Urine Appearance Clear (CLEAR) Urine pH 5 (5-7) Ur Specific [place] 1.010 (1.005-1.030) Urine Protein Neg (Negative) Urine Glucose (UA) Norm (Normal) Urine Ketones 1+ H (Negative) Urine Nitrate Negative (Negative) Urine Bilirubin 1+ H (Negative) Ur Leukocyte Esterase Negative (Negative) Coags 12/11/23 12/11/23 13:05 18:30 ESR 58 H PT 14.40 INR 1.08 C-Reactive Protein 61.8 H Cardiac Studies: 2 No Data to Display
[2023-12-12] MEDS: ceFAZolin 2,000 MG in sodium chloride 0.9% (plus) 50 ML 100 MG IV ×2 (13:27→16:31)
[2023-12-12] MEDS: lidocaine-epi 1% 20 mL INJ INJECTION (14:16)
--- NOTE | 2023-12-12 15:11 | PM.OP ---
Operative Report Date of procedure: December 12, 2023 Pre-op diagnosis: L1 wedge pathologic compression fracture Post-op diagnosis: same Procedure done: 1. L1 kyphoplasty 2. L1 radiofrequency ablation for L1 pathologic fracture 3. Biopsy L1 vertebral body Pathology: L1 biopsy Surgeon: Zane Calderón DO Estimated blood loss (mL): 25 Procedure: 1. L1 kyphoplasty 2. L1 radiofrequency ablation for L1 pathologic fracture 3. Biopsy L1 vertebral body He is brought to the operative suite after undergoing anesthesia was placed in the prone position. All areas impingement well-padded. Patient 5. Muscle fashion. Edges first brought to identifying the L1 level this was done by by fluoroscopy fluoroscopy. The skin incision made over the left pedicle. The awl was inserted. Followed by the biopsy probe. A chunk of bone biopsy was taken out this was sent to pathology for biopsy. Next attention was brought to doing the radiofrequency ablation. This was done by putting another tube in on the right pedicle. This was done by skin incision followed by awl followed by the drill drill was also passed on the left side. The radiofrequency ablation needle was inserted on the right and the left. The radiofrequency ablation program ran for 9 minutes once this was completed the radiofrequency ablation tubes were removed. Next tension was brought to perform the kyphoplasty. This was done by inserting balloons on both the right and left side. Wounds were then deflated. And then cement was injected into the vertebral body of L1. AP lateral fluoroscopy ensured that the cement was in good position. Wounds were irrigated and closed with nylon suture. Sterile dressings were applied patient was transferred to PACU in stable condition.
--- NOTE | 2023-12-12 15:40 | ANE.PACU2 ---
Inpatient post-anesthesia follow up: Airway intact: Yes Vital signs: Temperature 97.6 F Pulse Rate 59 Respiratory Rate 16 Blood Pressure 145/67 Pulse Oximetry 97 Oxygen Delivery Me thod Room Air Oxygen Flow Rate 8 Fraction of Inspir ed Oxygen Hydration adequate: Yes Nausea and vomiting: No Pain level: 1 Mental status: Baseline
[2023-12-12] MEDS: ketorolac 30 mg/mL INJ IVP (16:30)
[2023-12-12] MEDS: pantoprazole 40 mg SDV IVP (20:21)
[2023-12-12] MEDS: propranolol 20 mg Tablet 30 MG PO (20:21)
--- NOTE | 2023-12-12 20:51 | P.PN_ITS ---
Subjective 2 Subjective: He reports all things considered he is doing all right. Pain currently managed after his procedure. Vitals/I&O/Wt Last Vital Signs Temp 98.8 F 12/12/23 20:00 Pulse 83 12/12/23 20:00 Resp 16 12/12/23 20:00 BP 133/63 12/12/23 20:00 Pulse Ox 93 12/12/23 20:00 O2 Del Method Room Air 12/12/23 18:15 O2 Flow Rate 8 12/12/23 15:11 12/12/23 12/12/23 12/12/23 06:59 14:59 22:59 Intake Total 978.333 / 978.333 50 / 50 1625 / 1675 Output Total 350 / 350 705 / 705 Balance 628.333 / 628.333 -655 / -655 1625 / 970 Weight last 48 hrs Weight 77.111 kg Weight 77.111 kg Weight 77.111 kg Physical Exam 2 Narrative: Accompanied by visitor. Const: COMMON NORMALS: patient oriented x3 and alert GENERAL APPEARANCE: c ooperative ORIENTATION/CONSCIOUSNESS: Yes awake HENMT: COMMON NORMALS: oropharynx normal Neck/C-Spine: COMMON NORMALS: no JVD Resp: COMMON NORMALS: normal respiratory effort and clear to auscultation bilaterally AUSCULTATION: clear to auscultation bilaterally Cardio: COMMON NORMALS: no JVD, regular rhythm, S1 normal heart sound present, S2 normal heart sound present and No murmurs present (Cardio) RHYTHM: regular rhythm HEART SOUNDS: S1 normal heart sound present and S2 normal heart sound present GI: COMMON NORMALS: Normal to inspection, nondistended, normoactive bowel sounds present, Soft to palpation and non-tender PALPATION: Yes Soft to palpation Extremity: COMMON NORMALS: no joint enlargement and no pedal edema Neuro: COMMON NORMALS: patient oriented x3 and moves all extremities S ENSORIUM/ORIENTATION: Yes alert Skin: COMMON NORMALS: no rashes or lesions noted GENERAL SKIN EXAM: no rashes or lesions noted Urinary Catheter Management: Hansen: Cath Placed During This Visit: yes Reason for Continuing Indwelling Catheter: Other Urinary Catheter Date of Insertion: 12/11/23 Urinary Catheter Time of Insertion: 22:06 Data 12/12/23 05:18 12/12/23 05:18 A&P Assessment and plan (1) Compression fracture of L1 lumbar vertebra: Qualifiers: Encounter type: initial encounter Qualified Code(s): S32.010A - Wedge compression fracture of first lumbar vertebra, initial encounter for closed fracture (2) Intractable pain: (3) Stool incontinence: (4) Right upper quadrant pain: (5) Diplopia: Plan L1 compression vertebral fracture Status post vertebroplasty and biopsy. Biopsy results pending. Reassess condition. Continue to optimize pain control. Morphine IV has been needed for severe breakthrough. Will resume his home oral hydrocodone. -With intractable pain -With stool incontinence MR/MR lumbar spine wo con* [id number] IMPRESSION: Mild compression fracture of L1. Signal abnormality is seen throughout the vertebral body. Posterior bulging of cortex is seen producing 30-40% narrowing of the AP diameter of the canal at the mid L1 level. Edema extends into the left L1 pedicle. Overall appearance raises question of pathologic fracture related to neoplasm. If vertebral augmentation is considered, biopsy should be obtained at this time. Otherwise a follow up examination is recommended in 2-3 months. -Decadron 10 mg IV push every 24 hours. Risk of hyperglycemia, monitor. Reviewed glucose. Change to consistent carbohydrate diet. -Morphine 2 mg IV push every 4 as needed for pain Discussed with case management specialist Reviewed PT note from this evening, he otherwise has done well, plans for home exercise program. Right upper quadrant pain, with transaminitis, elevated alk phos -Reviewed CT scan abdomen pelvis -Reviewed upper quadrant ultrasound, concerning for multiple hypoechoic liver lesions suspected metastatic with superimposed diffuse fatty infiltration. Concerns for pathologic fracture, status postbiopsy, follow-up pathology. -History of skin cancer, history of smoking -CT chest abdomen pelvis, Complaints of diplopia -NIH stroke scale, neurochecks, aspiration precautions -No facial droop, slurring words, no focal weakness, NIH stroke scale 0 -CT of the head reviewed, noted no acute findings, atrophy and chronic deep white matter ischemic changes. Attestations 2 Medical Necessity Statement*: Continue admission for optimization of pain control with lumbar compression fracture, suspected pathologic fracture. and High MDM includes amount and/or complexity of data reviewed/ordered [ previous or external records, resulted lab(s)/test(s), ordered lab(s)/test(s) and other healthcare professional discussion] and described risk of complication, morbidity or mortality of management as documented Diagnoses Compression fracture of L1 vertebra, initial encounter S32.010A Encounter type: initial encounter Intractable pain R52 Stool incontinence R15.9 Right upper quadrant pain R10.11 Diplopia H53.2
--- NOTE | 2023-12-13 01:39 | PC.NURSE ---
Received report from JOSE Arnett.
[2023-12-13] MEDS: sodium chloride 0.9% 1,000 ML 100 ML IV (02:01)
[2023-12-13] MEDS: ceFAZolin 2,000 MG in sodium chloride 0.9% (plus) 50 ML 100 MG IV ×2 (02:01→08:35)
[2023-12-13] MEDS: ketorolac 30 mg/mL INJ IVP (03:46)
[2023-12-13 03:53] VITALS: BP 136/66; PULSE 61; RESP 17; TEMP 37.2; O2SAT 96
[2023-12-13 04:22] VITALS: BP 136/66; PULSE 61; RESP 17; TEMP 37.2; O2SAT 96
[2023-12-13 04:41] LABS: Basophils % 0.1 %; Hematocrit 38.5 % (37-53); Lymphocytes # 1.3 10^3/uL (0.8-4.8); Lymphocytes % 9.2 %; Mean Corpuscular HGB Conc 32.5 g/dL (30-55); Mean Corpuscular Hemoglobin 30.5 pg (27-33); Mean Corpuscular Volume 93.9 fl (82-101); Mean Platelet Volume 10.6 fL (7.4-10.4); Monocytes # 0.8 10^3/uL (0.2-0.9); Monocytes % 5.7 %; Neutrophils # 11.78 10^3/uL (1.8-7.7); Neutrophils % 84.2 %; Nucleated Red Blood Cells % 0 %; Platelet Count 330 10^3/cmm (157-399); Red Cell Distribution Width 12.8 % (12.1-15.1); White Blood Count 13.98 10^3/uL (3.29-11.43)
[2023-12-13 04:59] LABS: Alanine Aminotransferase 48 U/L (0-41); Alkaline Phosphatase 175 U/L (40-130); Anion Gap 15.1 (5-19); Aspartate Amino Transferase 46 U/L (0-40); Blood Urea Nitrogen 25 mg/dL (8-23); Calcium 8.2 mg/dL (8.5-10.5); Carbon Dioxide 22 mmol/L (22-29); Chloride 104 mmol/L (98-107); Globulin 3.3 g/dL (1.3-4.6); Glucose 175 mg/dL (65-115); Magnesium 2.6 mg/dL (1.7-2.3); Osmolality Calculated 291 mOsm/kg (285-295); Phosphorus 2.9 mg/dL (2.5-4.5); Potassium 5.1 mmol/L (3.5-5.1); Sodium 136 mmol/L (136-145); Total Bilirubin 0.3 mg/dL (0.15-1.2); Total Protein 6.3 g/dL (6.6-8.7)
[2023-12-13 06:18] VITALS: PULSE 63
--- NOTE | 2023-12-13 07:42 | PM.PN ---
Subjective Subjective: Patient pain significant proved. At this point okay to discharge from a spine standpoint awaiting biopsy diagnosis. Vitals/I&O/Wt Last Vital Signs Temp 99 F 12/13/23 04:22 Pulse 63 12/13/23 06:18 Resp 17 12/13/23 04:22 BP 136/66 12/13/23 04:22 Pulse Ox 96 12/13/23 04:22 O2 Del Method Room Air 12/13/23 04:22 O2 Flow Rate 8 12/12/23 15:11 12/12/23 12/13/23 12/13/23 22:59 06:59 14:59 Intake Total 210 / 2155 1476.667 / 3631.667 Output Total 1999 / 2704 Balance 2105 / 1450 -523.333 / 926.667 Weight last 48 hrs Weight 170 lb Weight 170 lb Weight 170 lb Weight 170 lb Physical Exam Narrative: 5 5 strength bilateral lower extremities. Urinary Catheter Management: Hansen: Cath Placed During This Visit: yes, but has since been removed by the nurse Reason for Continuing Indwelling Catheter: Decision to DC Catheter Urinary Catheter Date of Insertion: 12/11/23 Urinary Catheter Time of Insertion: 22:06 Date Urinary Catheter Removed: 12/13/23 Time Urinary Catheter Discontinued: 05:49 Data 12/13/23 04:13 12/13/23 04:13 A&P Assessment and plan (1) Compression fracture of L1 lumbar vertebra: Patient had a L1 kyphoplasty with radiofrequency ablation and biopsy yesterday. At this point pain is much improved. Discharge planning from spine standpoint. Qualifiers: Encounter type: initial encounter Qualified Code(s): S32.010A - Wedge compression fracture of first lumbar vertebra, initial encounter for closed fracture Attestations Medical Necessity Statement*: Per primary service Coding Level of Care Code Acute Code for Chg Fwd Diagnoses Compression fracture of L1 vertebra, initial encounter S32.010A Encounter type: initial encounter
[2023-12-13 08:00] VITALS: BP 150/74; PULSE 76; RESP 17; TEMP 36.8; O2SAT 92
[2023-12-13] MEDS: dexamethasone 10 mg/mL INJ IVP (08:35)
[2023-12-13] MEDS: propranolol 20 mg Tablet 30 MG PO (08:35)
[2023-12-13 11:59] VITALS: BP 145/67; PULSE 59; RESP 16; TEMP 36.4; O2SAT 97
--- NOTE | 2023-12-13 12:11 | PM.DCS ---
Discharge Providers Date of Admission: 12/11/23 17:43 Date of Discharge: December 13, 2023 Attending Provider at Admission: Paramjit Troncoso MD Attending Provider at Discharge: Ronnie Amaro Primary Care Provider: Beau Francis MD Diagnoses at Discharge Discharge Diagnosis (1) Compression fracture of L1 lumbar vertebra: Status: Acute Qualifiers: Encounter type: initial encounter Qualified Code(s): S32.010A - Wedge compression fracture of first lumbar vertebra, initial encounter for closed fracture Reason for Visit Reason for Visit: severe back pain, loss control of bowel movements Brief History: Lg Crabtree is a 78 year old male with a past medical history of benign essential tremor, history of skin cancer on his back status post resection, basal cell carcinoma GERD, who presents to [facility] for acute back pain, with stool incontinence. On 12/03/2023, patient was working outside, and he was pulling on his metal wire on his fence, when he suddenly felt a pop in his back, immediately had low back pain, more on the right side, the pain did not radiate down his extremities, no numbness, no paresthesias, no difficulty walking, no saddle perianal anesthesia, no urinary continence, no bowel incontinence. Due to persistent pain, he is followed up with his primary care provider, has been on NSAIDs, without improvement of his pain, has been placed on hydrocodone, methocarbamol, however continue to have pain. The reason he comes to the emergency room tonight, the pain lower back pain has become much more severe at much more constant, now associated with stool incontinence, no urinary continence, no saddle or perianal anesthesia, no paresthesias, he walked into the emergency room, did feel unsteady on his feet, but was still able to walk into the emergency room. Lumbar MRI MR/MR lumbar spine wo con* [id number] IMPRESSION: Mild compression fracture of L1. Signal abnormality is seen throughout the vertebral body. Posterior bulging of cortex is seen producing 30-40% narrowing of the AP diameter of the canal at the mid L1 level. Edema extends into the left L1 pedicle. Overall appearance raises question of pathologic fracture related to neoplasm. If vertebral augmentation is considered, biopsy should be obtained at this time. Otherwise a follow up examination is recommended in 2-3 months. -ER provider spoke to Dr. Calderón, Dr. Calderón is on consult tomorrow, Dr. Calderón agreed to see patient tomorrow morning, there was certainly a concern for cauda equina syndrome, however there is no MRI evidence of it ER provider told me, and given that [facility] is not transferring any patients given this snowstorm outside, patient would have better luck seeing a spinal surgeon here at [facility] than wait to be possibly transfer to tertiary level center, I spoke to patient, about this, and he is agreeable to stay here at [facility], I am certainly concerned about his bowel incontinence, but he does not have any other alarm symptoms, his pain is currently under control, and I have messaged Dr. Calderón and is agreed to see patient in the morning, patient has received Decadron, has received pain control, patient understands morbidity mortality associated with his MRI findings, discussed risk and benefits, shared decision making, he voiced understanding, all questions answered, agreed to stay here at [facility] -On examination, patient has significant abdominal distention, with fluid wave present, he denies a history of alcoholism, he tells me that typically it takes him a few weeks to drink a sixpack of alcohol, his white count was 16,000 he has elevated AST at 50, ALT of 59 elevated alk phos of 252, bilirubin within normal limits, on examination patient has significant right upper quadrant tenderness, Patient also tells me that he has been having intermittent diplopia, denies any facial droop, no slurring of words, no focal weakness, no focal paresthesias, he has been noticing it for the last 24 hours, no headache, no blurry vision Hospital Course Hospital Course While in the hospital pain was managed with IV morphine. With fecal incontinence, concern for possibility of cord compression assessed by [facility] surgery. He underwent vertebral biopsy as well as kyphoplasty. Right upper quadrant ultrasound also revealed multiple hypoechoic liver lesions suspected likely metastatic in nature superimposed on diffuse fatty infiltration. Mildly distended gallbladder otherwise unremarkable. CT chest abdomen pelvis without contrast with mild compression of L1, changes concerning for pathological fracture possibly secondary to bone metastasis, otherwise unremarkable, with addendum noting heterogeneity throughout the liver parenchyma without discrete masses possibly due to focal infiltration. He otherwise did well with physical therapy with recommendation for home exercise program is discharging home with outpatient follow-up. Please follow-up vertebral biopsy, if nondiagnostic consider further investigation of possible liver lesions. Did not have recurrence of diplopia, however, with concerning findings additionally referred for assessment by MRI brain. Hospital admission noted with hyperglycemia, A1c was obtained, with finding of diabetes, A1c 7.3. He is provided with education,started on metformin, with prescription sent for glucometer, lancets and strips. Please follow-up for new diagnosis of diabetes. Physical Exam Narrative: He reports he is doing well. Pain under control. Intends to continue home exercise program. Const: COMMON NORMALS: patient oriented x3 and alert GENERAL APPEARANCE: cooperative ORIENTATION/CONSCIOUSNESS: Yes awake HENMT: COMMON NORMALS: oropharynx normal Neck/C-Spine: COMMON NORMALS: no JVD Resp: COMMON NORMALS: normal respiratory effort and clear to auscultation bilaterally AUSCULTATION: clear to auscultation bilaterally Cardio: COMMON NORMALS: no JVD, regular rhythm, S1 normal heart sound present, S2 normal heart sound present and No murmurs present (Cardio) RHYTHM: regular rhythm HEART SOUNDS: S1 normal heart sound present and S2 normal heart sound present GI: COMMON NORMALS: Normal to inspection, nondistended, normoactive bowel sounds present, Soft to palpation and non-tender PALPATION: Yes Soft to palpation Extremity: COMMON NORMALS: no joint enlargement and no pedal edema Neuro: COMMON NORMALS: patient oriented x3 and moves all extremities SENSORIUM/ORIENTATION: Yes alert Skin: COMMON NORMALS: no rashes or lesions noted GENERAL SKIN EXAM: no rashes or lesions noted Urinary Catheter Management: Hansen: Cath Placed During This Visit: yes, but has since been removed by the nurse Reason for Continuing Indwelling Catheter: Decision to DC Catheter Urinary Catheter Date of Insertion: 12/11/23 Urinary Catheter Time of Insertion: 22:06 Date Urinary Catheter Removed: 12/13/23 Time Urinary Catheter Discontinued: 05:49 Discharge Data Studies Completed and Pending Completed Studies During Hospitalization Category [place] [id number] Stat Cat Scan 12/11/23 17:[address] head wo con* [id number] Stat Cat Scan 12/11/23 18:[address] lumbar spine wo con* [id number] Stat Cat Scan 12/11/23 12:51 Completed MR lumbar spine wo con* [id number] Stat MRI 12/11/23 14:03 Completed US gall bladder [id number] Stat Ultrasound 12/11/23 17:42 Completed Pending at discharge Category Date Time Status Complete Blood Count w/Auto AM LABS Lab 12/14/23 04:00 Ordered Comprehensive Metabolic Panel AM LABS Lab 12/14/23 04:00 Ordered Magnesium AM LABS Lab 12/14/23 04:00 Ordered Phosphorus AM LABS Lab 12/14/23 04:00 Ordered Pathology: Surgical [PTH] Routine Pth 12/12/23 14:45 Received Radiology Impressions Lumbar Spine CT 12/11/23 12:51 IMPRESSION: L1 compression deformity without retropulsion, age indeterminate. Lumbar Spine MRI 12/11/23 14:03 IMPRESSION: Mild compression fracture of L1. Signal abnormality is seen throughout the vertebral body. Posterior bulging of cortex is seen producing 30-40% narrowing of the AP diameter of the canal at the mid L1 level. Edema extends into the left L1 pedicle. Overall appearance raises question of pathologic fracture related to neoplasm. If vertebral augmentation is considered, biopsy should be obtained at this time. Otherwise a follow up examination is recommended in 2-3 months. Gallbladder Ultrasound 12/11/23 17:42 IMPRESSION: 1. Multiple hypoechoic liver lesions likely metastatic in nature superimposed on diffuse fatty infiltration. 2. Mildly distended gallbladder which is otherwise unremarkable. 3. Limited assessment of the pancreas. Chest/Abdomen/Pelvis CT 12/11/23 17:54 IMPRESSION: 1. No acute abnormalities within the chest. 2. No evidence of metastatic disease within the chest. IMPRESSION: 1. Mild compression fracture of L1 with additional bone changes involving the vertebral body concerning for pathological fracture possibly secondary to bone metastasis. 2. Nonemergent findings as above. COMMENTS: Consistent with the [employer]'s Incidental Findings Committee white paper (J Am Estefany Radiol 2018): Any incidental renal lesion less than 1 cm or classified as too small to characterize, or any incidental cystic renal lesion characterized as simple-appearing, is likely benign. No follow-up imaging is recommended for these lesions per consensus recommendations based on imaging criteria. ADDENDUM: 12/11/23 9401 There is mild heterogeneity throughout the liver parenchyma without discrete masses identified possibly due to focal fatty infiltration. Please refer to follow-up abdominal ultrasound exam for further assessment. Head CT 12/11/23 18:14 IMPRESSION: 1. No acute intracranial abnormality. 2. Atrophy and chronic deep white matter ischemic changes. Laboratory Results WBC 13.98 10^3/uL (3.29-11.43) H 12/13/23 04:13 RBC 4.10 10^6/uL (3.85-5.65) 12/13/23 04:13 Hgb 12.50 g/dL (11.27-16.99) 12/13/23 04:13 Hct 38.5 % (37-53) 12/13/23 04:13 MCV 93.9 fl (82-101) 12/13/23 04:13 MCH 30.5 pg (27-33) 12/13/23 04:13 MCHC 32.5 g/dL (30-55) 12/13/23 04:13 RDW 12.8 % (12.1-15.1) 12/13/23 04:13 Plt Count 330 10^3/cmm (157-399) 12/13/23 04:13 MPV 10.6 fL (7.4-10.4) H 12/13/23 04:13 Neut % (Auto) 84.2 % 12/13/23 04:13 Lymph % (Auto) 9.2 % 12/13/23 04:13 Wilkin % (Auto) 5.7 % 12/13/23 04:13 Eos % (Auto) 0.0 % 12/13/23 04:13 Baso % (Auto) 0.1 % 12/13/23 04:13 Neut # (Auto) 11.78 10^3/uL (1.8-7.7) H 12/13/23 04:13 Lymph # (Auto) 1.3 10^3/uL (0.8-4.8) 12/13/23 04:13 Wilkin # (Auto) 0.8 10^3/uL (0.2-0.9) 12/13/23 04:13 Eos # (Auto) 0.0 10^3/uL (0.0-0.8) 12/13/23 04:13 Baso # (Auto) 0.0 10^3/uL (0.0-0.1) 12/13/23 04:13 Nucleated RBC % (auto) 0 % 12/13/23 04:13 Nucleated RBCs # 0.0 /100WBC 12/13/23 04:13 ESR 58 mm/hr (0-10) H 12/11/23 13:05 PT 14.40 SECONDS (12.1-14.9) 12/11/23 18:30 INR 1.08 (0.8-1.2) 12/11/23 18:30 Sodium 136 mmol/L (136-145) 12/13/23 04:13 Potassium 5.1 mmol/L (3.5-5.1) 12/13/23 04:13 Chloride 104 mmol/L (98-107) 12/13/23 04:13 Carbon Dioxide 22 mmol/L (22-29) 12/13/23 04:13 Anion Gap 15.1 (5-19) 12/13/23 04:13 BUN 25 mg/dL (8-23) H 12/13/23 04:13 Creatinine 0.9 mg/dL (0.7-1.2) 12/13/23 04:13 GFR Calculation Not Reportable 12/13/23 04:13 Glucose 175 mg/dL (65-115) H 12/13/23 04:13 Estimat Average Glucose 163 12/11/23 21:04 Hemoglobin A1c 7.3 % (4.0-6.0) H 12/11/23 21:04 Calculated Osmolality 291 mOsm/kg (285-295) 12/13/23 04:13 Calcium 8.2 mg/dL (8.5-10.5) L 12/13/23 04:13 Phosphorus 2.9 mg/dL (2.5-4.5) 12/13/23 04:13 Magnesium 2.6 mg/dL (1.7-2.3) H 12/13/23 04:13 Total Bilirubin 0.3 mg/dL (0.15-1.2) 12/13/23 04:13 AST 46 U/L (0-40) H 12/13/23 04:13 ALT 48 U/L (0-41) H 12/13/23 04:13 Alkaline Phosphatase 175 U/L (40-130) H 12/13/23 04:13 C-Reactive Protein 61.8 mg/L (0.0-4.9) H 12/11/23 13:05 Total Protein 6.3 g/dL (6.6-8.7) L 12/13/23 04:13 Albumin 3.0 g/dL (3.5-5.2) L 12/13/23 04:13 Globulin 3.3 g/dL (1.3-4.6) 12/13/23 04:13 Lipase 19 U/L (13-60) 12/11/23 13:05 Lipase Cancelled 12/11/23 13:05 Prostate Specific Ag 10.660 ng/mL (0-4) H 12/11/23 13:05 Procalcitonin 0.37 ng/mL (0-0.5) 12/11/23 13:05 TSH 0.49 uIU/mL (0.27-4.20) 12/11/23 21:04 Urine Color Yellow (Yellow) 12/11/23 16:44 Urine Appearance Clear (CLEAR) 12/11/23 16:44 Urine pH 5 (5-7) 12/11/23 16:44 Ur Specific Dawson 1.010 (1.005-1.030) 12/11/23 16:44 Urine Protein Neg (Negative) 12/11/23 16:44 Urine Glucose (UA) Norm (Normal) 12/11/23 16:44 Urine Ketones 1+ (Negative) H 12/11/23 16:44 Urine Blood Neg (Negative) 12/11/23 16:44 Urine Nitrate Negative (Negative) 12/11/23 16:44 Urine Bilirubin 1+ (Negative) H 12/11/23 16:44 Urine Urobilinogen 1 mg/dL (Negative) H 12/11/23 16:44 Ur Leukocyte Esterase Negative (Negative) 12/11/23 16:44 Vitals Last Vital Signs Temp 97.6 F 12/13/23 11:59 Pulse 59 L 12/13/23 11:59 Resp 16 12/13/23 11:59 BP 145/67 12/13/23 11:59 Pulse Ox 97 12/13/23 11:59 O2 Del Method Room Air 12/13/23 04:22 O2 Flow Rate 8 12/12/23 15:11 Discharge Plan Discharge Patient Disposition: Home Condition: Stable Prescriptions: New metformin 500 mg tablet 500 mg PO BID Qty: 180 0RF (DME) diabetic supplies, miscellan. Misc See Rx Instructions .Route Qty: 1 0RF Rx Instructions: As directed Glucometer, 90 lancets and strips dexamethasone 2 mg tablet See Rx Instructions .ROUTE .COMPLEX Qty: 19 0RF Rx Instructions: 3 tab daily for 3 days, then 2 tab for 3 days, then 1 tab for 3 days, then 1/2 tab for 2 days. Continued methocarbamol 750 mg tablet 750 mg PO Q8H Qty: 30 0RF omeprazole 20 mg capsule,delayed release(DR/EC) 20 mg PO DAILY Qty: 90 3RF propranolol 10 mg tablet See Rx Instructions .ROUTE .COMPLEX Qty: 810 2RF Dose Instruction: TAKE 3 TABLETS BY MOUTH THREE TIMES DAILY Rx Instructions: TAKE 3 TABLETS BY MOUTH THREE TIMES DAILY hydrocodone-acetaminophen 10-325 mg tablet 1 tab PO Q6H PRN (Reason: pain) 10 Days Qty: 40 0RF ibuprofen 400 mg Tablet 400 mg PO Q6H PRN (Reason: Pain) Discharge Orders: Discharge Order (Routine); Ordered 12/13/23 Ordered By: Ronnie Amaro Other Ambulatory Orders: MR head w con [id number] (Routine) Timeframe: 2 Days Facility: [facility] - Location: Radiology [facility] Ordered By: Ronnie Amaro Referrals: Zane Calderón DO [Physician] - 2 weeks (We have notified your physician's clinic of the need for a follow-up appointment to be scheduled. If you have not heard from them within the next 2 business days, please call them directly. ) Beau Francis MD [Primary Care Provider] - 12/19/23 11:30 am Discharge Diet: Diabetic Discharge Activity: Increase activity as tolerated and As per PT/OT instructions Patient Instructions: Fractures - Compression, Diabetes and Diet, Metformin (By mouth), Dexamethasone (By mouth), Type 2 Diabetes in Adults: New Diagnosis (GEN), Kyphoplasty (DC), What to Do if Your Blood Sugar is Low (GEN), How to Check your Blood Sugar (GEN), Opioid Safety Activity Restrictions/Additional Instructions: Weight-bear as tolerated Follow-up in spine clinic in 2 weeks Okay to shower Follow-up with your primary provider for pathology results with concern for pathological fracture as discussed for additional assessment of possible malignancy. As discussed if pathology results not revealing, additional assessment will need to be pursued of spots on the liver with concern for a possible cancer, although currently not confirmed. Follow-up with your primary doctor also for additional assessment of diplopia. CT of the head showed no acute findings, some chronic changes. You are referred for additional assessment with MRI brain. Follow-up with your primary doctor for compression fracture and functional ability as well as pain control. Follow-up with your primary doctor regarding bowel incontinence. Follow-up with your primary doctor for concern for diabetes, hemoglobin A1c is 7.3. Continue with consistent carbohydrate diet. You are started on metformin. Check your blood glucose twice daily. Write down values to bring to your appointment. Return to the hospital in case of any worsening or new concerning symptoms. Discharge Attestations Time Spent in Discharge Care*: greater than 30 min Quality Metrics Clinical Quality Measures [ No reported AMI, CVA or VTE this stay] Coding Level of Care Code 09813 Total time (in minutes) for Discharge: 45 Diagnoses Compression fracture of L1 vertebra, initial encounter S32.010A Encounter type: initial encounter
[2023-12-13 13:43] VITALS: BP 145/67; PULSE 59; RESP 16; TEMP 36.4; O2SAT 97
== END 2023-12-13 13:43 | disposition home or self-care (01) | DRG 478 ==
LOC: ER 17:37 → MEDSURG 19:59
PROVIDERS: Orthopaedic Surgery; Admitting Provider Family Medicine; Emergency Provider Family Medicine; PCP Family Medicine; Visit Provider Internal Medicine
PROC: 0QU00JZ Supplement Lumbar Vertebra with Synthetic Substitute, Open Approach (ICD-10-PCS; principal; 2023-12-12 16:40)
DX: M84.58XA Pathological fracture in neoplastic disease, other specified site, initial encounter for fracture (principal); C79.51 Secondary malignant neoplasm of bone; C80.1 Malignant (primary) neoplasm, unspecified; K76.9 Liver disease, unspecified; Z87.891 Personal history of nicotine dependence; K21.9 Gastro-esophageal reflux disease without esophagitis; G25.0 Essential tremor; M19.012 Primary osteoarthritis, left shoulder; R15.9 Full incontinence of feces; H53.2 Diplopia; E11.65 Type 2 diabetes mellitus with hyperglycemia; Z79.84 Long term (current) use of oral hypoglycemic drugs; Z85.828 Personal history of other malignant neoplasm of skin
CPT/HCPCS: 36415; 51702; 51798; 70450; 71250; 72100; 72131; 72148; 74176; 76000; 76705; 80053; 81003; 83036; 83690; 83735; 84100; 84145; 84153; 84443; 85025; 85610; 85651; 86140; 88307; 88311; 88342; 94664; 96372; 96374; 96375; 97161; 97530; 99285; C9113; J0690; J1100; J1170; J1885; J2270; J2405; J2704; J2710; J3010; J3490; J7030

== ENCOUNTER 2023-12-21 09:36 | Oncology outpatient (recurring) (ONCR) | payer MEDICARE, SELFPAY ==
[2023-12-21 11:47] LABS: Basophils # 0.1 10^3/uL (0.0-0.1); Basophils % 0.4 %; Eosinophils # 0.1 10^3/uL (0.0-0.8); Eosinophils % 0.7 %; Hematocrit 49.5 % (37-53); Lymphocytes % 11.3 %; Mean Corpuscular HGB Conc 33.5 g/dL (30-55); Mean Corpuscular Hemoglobin 30.2 pg (27-33); Mean Platelet Volume 10.5 fL (7.4-10.4); Monocytes # 0.7 10^3/uL (0.2-0.9); Neutrophils # 13.84 10^3/uL (1.8-7.7); Neutrophils % 79.6 %; Nucleated Red Blood Cells % 0 %; Platelet Count 449 10^3/cmm (157-399); White Blood Count 17.39 10^3/uL (3.29-11.43)
[2023-12-21 12:25] LABS: Alanine Aminotransferase 244 U/L (0-41); Albumin Level 3.7 g/dL (3.5-5.2); Alkaline Phosphatase 229 U/L (40-130); Anion Gap 17.7 (5-19); Aspartate Amino Transferase 102 U/L (0-40); Blood Urea Nitrogen 31 mg/dL (8-23); Calcium 9.5 mg/dL (8.5-10.5); Carbon Dioxide 19 mmol/L (22-29); Chloride 98 mmol/L (98-107); Globulin 3.7 g/dL (1.3-4.6); Glucose 190 mg/dL (65-115); Osmolality Calculated 282 mOsm/kg (285-295); Potassium 4.7 mmol/L (3.5-5.1); Sodium 130 mmol/L (136-145); Total Bilirubin 0.6 mg/dL (0.15-1.2); Total Protein 7.4 g/dL (6.6-8.7)
[2023-12-21 12:29] LABS: Hepatitis A Antibody IgM Non-Reactive (Nonreactive); Hepatitis B Core AB, Total Non-Reactive (Nonreactive); Hepatitis B Surface AB < 3.5 (11.5-1000); Hepatitis B Surface Antigen Non-Reactive (Nonreactive); Hepatitis C Virus Antibody Non-Reactive (Nonreactive)
== END 2023-12-28 23:59 | disposition home or self-care (01) ==
PROVIDERS: Internal Medicine; PCP Family Medicine; Visit Provider Family Medicine
DX: C22.0 Liver cell carcinoma (principal); C79.51 Secondary malignant neoplasm of bone; Z85.828 Personal history of other malignant neoplasm of skin; Z79.899 Other long term (current) drug therapy; S32.010A Wedge compression fracture of first lumbar vertebra, initial encounter for closed fracture; X58.XXXA Exposure to other specified factors, initial encounter; Z87.891 Personal history of nicotine dependence
CPT/HCPCS: 36415; 80053; 82105; 84153; 85025; 86705; 86706; 86709; 86803; 87340; 99204

== ENCOUNTER 2024-01-03 14:09 | Outpatient (CLI) | payer MEDICARE, SELFPAY ==
[2024-01-03] MEDS: iohexol 350 mg/mL 500 mL Btl (per mL) PO (15:26)
--- NOTE | 2024-01-03 15:30 | CTR_ITS ---
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 TECHNIQUE: Imaging protocol: Computed tomography of the abdomen and pelvis with contrast. Radiation optimization: All CT scans at this facility use at least one of these dose optimization techniques: automated exposure control; mA and/or kV adjustment per patient size (includes targeted exams where dose is matched to clinical indication); or iterative reconstruction. Contrast material: OMNI 350; Contrast volume: 95 ml; Contrast route: INTRAVENOUS (IV); COMPARISON: [place] [id number] 12/11/2023 6:16 PM RADIATION DOSE METRICS: Total DLP (mGy-cm): 1444.06 FINDINGS: Lungs: Minimal subsegmental atelectasis in both lung bases. Liver: Hepatic steatosis. Gallbladder and bile ducts: Normal. No calcified stones. No ductal dilation. Pancreas: Normal. No ductal dilation. Spleen: The spleen is unremarkable. 1.6 cm rounded nodule anterior to the spleen likely a splenule. Adrenal glands: See Kidneys and ureters finding. Kidneys and ureters: Cyst in left kidney which does not warrant further evaluation. No renal obstruction.The adrenal glands are unremarkable. Stomach and bowel: Colonic diverticulosis without evidence of diverticulitis. Appendix: No evidence of appendicitis. Intraperitoneal space: Unremarkable. No free air. No significant fluid collection. Vasculature: Innumerable enhancing hepatic nodules which are most apparent on arterial phase with some equilibration on venous and increasingly on delayed images. Lymph nodes: Unremarkable. No enlarged lymph nodes. Urinary bladder: Normal bladder contour. Reproductive: Prostatic hypertrophy. Bones/joints: Moderate compression fracture L1 with recent cement injection. Small amount of cement is seen in the anterior epidural space and extending into the left L1-L2 neural foramen. No significant retropulsion of bone. Soft tissues: Unremarkable. CT/CT abdomen pelvis w con* [id number] IMPRESSION: 1. Innumerable enhancing hepatic nodules which are most apparent on arterial phase with some equilibration on venous and increasingly on delayed images. Most likely malignancy. 2. Colonic diverticulosis without evidence of diverticulitis. COMMENTS: Consistent with the [employer]'s Incidental Findings Committee white paper (J Am Estefany Radiol 2018): Any incidental renal lesion less than 1 cm or classified as too small to characterize, or any incidental cystic renal lesion characterized as simple-appearing, is likely benign. No follow-up imaging is recommended for these lesions per consensus recommendations based on imaging criteria.
[2024-01-03] MEDS: iohexol 350 mg/mL 500 mL Btl (per mL) IV (15:54)
== END 2024-01-03 14:10 | disposition home or self-care (01) ==
LOC: RAD 14:12
PROVIDERS: PCP Family Medicine; Visit Provider Internal Medicine
DX: C79.51 Secondary malignant neoplasm of bone (principal); C22.0 Liver cell carcinoma
CPT/HCPCS: 74177; Q9967

== ENCOUNTER → 2024-01-06 11:07 | Outpatient (BNVA) | payer MEDICARE, SELFPAY | PROVIDERS: PCP Family Medicine; Visit Provider Orthopaedic Surgery | DX: X58.XXXD Exposure to other specified factors, subsequent encounter; S32.010D Wedge compression fracture of first lumbar vertebra, subsequent encounter for fracture with routine healing; C22.8 Malignant neoplasm of liver, primary, unspecified as to type; C79.51 Secondary malignant neoplasm of bone; M47.816 Spondylosis without myelopathy or radiculopathy, lumbar region | CPT/HCPCS: 72100; 99214 ==

== ENCOUNTER 2024-01-11 10:47 | Outpatient (CLI) | payer MEDICARE, SELFPAY ==
--- NOTE | 2024-01-11 10:51 | XR_ITS ---
WS: [id number] Pelvis, AP view, 01/11/2024 Clinical Data: severe pain left iliac crest Comparison: None. Findings: No fractures or dislocations are seen. The SI joints and pubic symphysis are intact. The soft tissues are not remarkable. The hips show minimal acetabular lips. Impression: Mild osteoarthritis of both hips.
== END 2024-01-11 10:48 | disposition home or self-care (01) ==
LOC: RAD 10:49
PROVIDERS: PCP Family Medicine; Visit Provider Family Medicine
DX: C79.51 Secondary malignant neoplasm of bone (principal); C22.0 Liver cell carcinoma
CPT/HCPCS: 72170; 80053; 85025

== ENCOUNTER → 2024-01-16 09:07 | Outpatient (BNVA) | payer MEDICARE, SELFPAY | PROVIDERS: PCP Family Medicine; Visit Provider Anesthesiology Pain Medicine | DX: M51.17 Intervertebral disc disorders with radiculopathy, lumbosacral region (principal); M51.36 Other intervertebral disc degeneration, lumbar region; S32.010A Wedge compression fracture of first lumbar vertebra, initial encounter for closed fracture; C79.51 Secondary malignant neoplasm of bone; C22.0 Liver cell carcinoma; C79.9 Secondary malignant neoplasm of unspecified site; M19.112 Post-traumatic osteoarthritis, left shoulder; S46.002S Unspecified injury of muscle(s) and tendon(s) of the rotator cuff of left shoulder, sequela; X58.XXXA Exposure to other specified factors, initial encounter; X58.XXXS Exposure to other specified factors, sequela | CPT/HCPCS: 99205 ==

== ENCOUNTER → 2024-01-19 13:58 | Outpatient (BNVA) | payer MEDICARE, SELFPAY | PROVIDERS: PCP Family Medicine; Visit Provider Anesthesiology Pain Medicine | DX: M79.18 Myalgia, other site (principal); M51.36 Other intervertebral disc degeneration, lumbar region; S32.010A Wedge compression fracture of first lumbar vertebra, initial encounter for closed fracture; C79.51 Secondary malignant neoplasm of bone; C22.0 Liver cell carcinoma; C79.9 Secondary malignant neoplasm of unspecified site; M19.112 Post-traumatic osteoarthritis, left shoulder; S46.002S Unspecified injury of muscle(s) and tendon(s) of the rotator cuff of left shoulder, sequela; X58.XXXA Exposure to other specified factors, initial encounter; X58.XXXS Exposure to other specified factors, sequela | CPT/HCPCS: 20553; 99214; J1030; J3490 ==

== ENCOUNTER 2024-01-23 08:20 | Outpatient (CLI) | payer MEDICARE, SELFPAY ==
[2024-01-24 15:38] LABS: CREATININE, 24 HOUR URINE 0.81 g/24 h (0.50-2.15); PROTEIN, TOTAL, 24 HR UR 109 mg/24 h (<150); Protein/Creatinine Ratio 0.135 (<0.100); Protein/Creatinine Ratio 135 mg/g creat (<100)
[2024-01-31 16:09] LABS: ALBUMIN 0 %; ALPHA-1-GLOBULINS 0 %; ALPHA-2-GLOBULINS 0 %; BETA GLOBULINS 0 %; GAMMA GLOBULINS 0 %
== END 2024-01-23 08:21 | disposition home or self-care (01) ==
LOC: LAB 08:20
PROVIDERS: PCP Family Medicine; Visit Provider Internal Medicine
DX: C79.51 Secondary malignant neoplasm of bone (principal); C22.0 Liver cell carcinoma; Z85.828 Personal history of other malignant neoplasm of skin
CPT/HCPCS: 84156; 84166

== ENCOUNTER 2024-01-25 09:03 | Oncology outpatient (recurring) (ONCR) | payer MEDICARE, SELFPAY ==
[2024-01-18 09:23] VITALS: BP 110/72; PULSE 65; RESP 18; TEMP 37.3; O2SAT 96
[2024-01-18 09:47] VITALS: BP 110/72; PULSE 65; RESP 18; TEMP 37.3; O2SAT 98
[2024-01-18 09:53] LABS: Basophils # 0.1 10^3/uL (0.0-0.1); Basophils % 0.9 %; Eosinophils # 0.2 10^3/uL (0.0-0.8); Eosinophils % 2.1 %; Hematocrit 43.2 % (37-53); Lymphocytes # 1.4 10^3/uL (0.8-4.8); Lymphocytes % 15.4 %; Mean Corpuscular HGB Conc 31.9 g/dL (30-55); Mean Corpuscular Hemoglobin 30.5 pg (27-33); Mean Corpuscular Volume 95.4 fl (82-101); Monocytes # 0.6 10^3/uL (0.2-0.9); Monocytes % 7.3 %; Neutrophils # 6.28 10^3/uL (1.8-7.7); Neutrophils % 71.7 %; Nucleated Red Blood Cells % 0 %; Platelet Count 304 10^3/cmm (157-399); Red Blood Count 4.53 10^6/uL (3.85-5.65); Red Cell Distribution Width 14.4 % (12.1-15.1); White Blood Count 8.76 10^3/uL (3.29-11.43)
[2024-01-18 10:08] LABS: INR 1.06 (0.8-1.2)
[2024-01-18 10:26] LABS: Thyroid Stimulating Hormone 3.35 uIU/mL (0.27-4.20)
[2024-01-18 10:37] LABS: Alanine Aminotransferase 82 U/L (0-41); Albumin Level 3.5 g/dL (3.5-5.2); Alkaline Phosphatase 384 U/L (40-130); Anion Gap 16.7 (5-19); Aspartate Amino Transferase 81 U/L (0-40); Blood Urea Nitrogen 18 mg/dL (8-23); Calcium 9.2 mg/dL (8.5-10.5); Carbon Dioxide 22 mmol/L (22-29); Chloride 106 mmol/L (98-107); Creatinine Clr Calc Pharmacy 49.3215; Globulin 3.7 g/dL (1.3-4.6); Glucose 194 mg/dL (65-115); Osmolality Calculated 297 mOsm/kg (285-295); Potassium 4.7 mmol/L (3.5-5.1); Sodium 140 mmol/L (136-145); Total Bilirubin 0.5 mg/dL (0.15-1.2); Total Protein 7.2 g/dL (6.6-8.7)
[2024-01-19 09:13] LABS: Immunoglobulin IGA 258 mg/dL (70-400); Immunoglobulin IGG 695 mg/dL (700-1600); Immunoglobulin IGM 97 mg/dL (40-230)
[2024-01-20 13:24] LABS: KAPPA LIGHT CHAIN, FREE, SERUM 24.4 mg/L (3.3-19.4); KAPPA/LAMBDA LIGHT CHAINS FREE 1.62 (0.26-1.65); LAMBDA LIGHT CHAIN, FREE, SERU 15.1 mg/L (5.7-26.3)
[2024-01-23 08:49] VITALS: BP 166/76; PULSE 62; RESP 14; TEMP 36.6; O2SAT 98
[2024-01-23 09:35] LABS: Basophils # 0.1 10^3/uL (0.0-0.1); Basophils % 0.8 %; Eosinophils # 0.1 10^3/uL (0.0-0.8); Eosinophils % 1.2 %; Hematocrit 41.6 % (37-53); Lymphocytes # 1.9 10^3/uL (0.8-4.8); Mean Corpuscular HGB Conc 33.2 g/dL (30-55); Mean Corpuscular Hemoglobin 30.4 pg (27-33); Mean Corpuscular Volume 91.6 fl (82-101); Monocytes # 0.8 10^3/uL (0.2-0.9); Monocytes % 8.4 %; Neutrophils # 6.25 10^3/uL (1.8-7.7); Neutrophils % 67.3 %; Nucleated Red Blood Cells % 0 %; Platelet Count 293 10^3/cmm (157-399); Red Blood Count 4.54 10^6/uL (3.85-5.65); Red Cell Distribution Width 14.7 % (12.1-15.1); White Blood Count 9.27 10^3/uL (3.29-11.43)
[2024-01-23 09:50] LABS: ALPHA 1 GLOBULIN 0.4 g/dL (0.2-0.3); ALPHA 2 GLOBULIN 1.1 g/dL (0.5-0.9); BETA 1 GLOBULIN 0.4 g/dL (0.4-0.6); BETA 2 GLOBULIN 0.5 g/dL (0.2-0.5); GAMMA GLOBULIN 0.6 g/dL (0.8-1.7)
[2024-01-23 09:59] LABS: Alanine Aminotransferase 157 U/L (0-41); Albumin Level 3.3 g/dL (3.5-5.2); Alkaline Phosphatase 349 U/L (40-130); Aspartate Amino Transferase 135 U/L (0-40); Blood Urea Nitrogen 20 mg/dL (8-23); Calcium 9.4 mg/dL (8.5-10.5); Carbon Dioxide 19 mmol/L (22-29); Chloride 106 mmol/L (98-107); Creatinine Clr Calc Pharmacy 73.9822; Globulin 3.5 g/dL (1.3-4.6); Glucose 163 mg/dL (65-115); Osmolality Calculated 290 mOsm/kg (285-295); Sodium 137 mmol/L (136-145); Total Bilirubin 0.5 mg/dL (0.15-1.2); Total Protein 6.8 g/dL (6.6-8.7)
[2024-01-23 10:05] LABS: Anion Gap 16.4 (5-19); Potassium 4.4 mmol/L (3.5-5.1)
[2024-01-23] MEDS: zoledronic acid (Zometa) 4 MG/100 ML PIGGYBACK 400 MG IV (14:23)
[2024-01-23 14:52] VITALS: BP 160/72; PULSE 74; RESP 16; TEMP 36.4; O2SAT 98
== END 2024-01-26 23:59 | disposition home or self-care (01) ==
PROVIDERS: Internal Medicine; Nurse Practitioner Family; PCP Family Medicine; Visit Provider Family Medicine
DX: C22.0 Liver cell carcinoma (principal); Z51.0 Encounter for antineoplastic radiation therapy; C79.51 Secondary malignant neoplasm of bone
CPT/HCPCS: 20553; 36415; 77280; 77295; 77300; 77334; 80053; 82105; 82784; 83883; 84153; 84155; 84156; 84165; 84166; 84443; 85025; 85610; 86334; 96365; 99024; 99205; 99214; 99215; J1030; J3489; J3490

== ENCOUNTER 2024-01-31 09:59 | Day surgery (SDC) | payer MEDICARE, SELFPAY ==
[2024-01-31] VITALS (15 sets, daily range): BP systolic 115–154; BP diastolic 66–100; PULSE 85–109; RESP 16–21; TEMP 36.3–36.4; O2SAT 96–99; BMI 23.6
--- NOTE | 2024-01-31 10:12 | US_ITS ---
WS: [id number] ULTRASOUND GUIDED BIOPSY LIVER LESIONS. HISTORY: LIVER CELL CARCINOMA Procedure, risks, and complications are explained to the patient. Consent was obtained. Skin is clean sed with ChloraPrep and anesthetized with 1% buffered lidocaine. Conscious sedation will be utilized. Comparison: Prior ultrasound 12/11/[address] 01/03/2024. Hypoechoic lesion with mild bulging of the liver contour is identified in the LEFT lobe. This lesion will be targeted for biopsy due to its size. A small dermatome is made. Core biopsies performed with an 18-gauge needle. 3 biopsies are performed and placed in formalin with no complication. Patient joe l be observed for 1 to 2 hours post procedure to ensure no bleeding. IMPRESSION: Uncomplicated ultrasound-guided liver biopsy hypoechoic mass in the LEFT lobe.
[2024-01-31] MEDS: sodium chloride 0.9% 1,000 ML 30 ML IV (10:35)
[2024-01-31 11:07] LABS: INR 0.98 (0.8-1.2)
[2024-01-31] MEDS: fentaNYL 50 mcg/mL INJ 2mL 25 MCG IVP (12:06)
[2024-01-31] MEDS: midazolam 1 mg/mL INJ 2 mL IVP (12:07)
--- NOTE | 2024-01-31 14:11 | PC.NURSE ---
Pt monitored post-procedure for 1.5 hours, has had pudding and orange juice, no bleeding at biopsy site, Dr. Eng authorized pt to be discharged.
== END 2024-01-31 14:40 | disposition home or self-care (01) ==
PROVIDERS: Radiology Diagnostic Radiology; PCP Family Medicine; Visit Provider Internal Medicine Medical Oncology
PROC: (CPT 76942; principal; 2024-01-31 11:15)
DX: C22.9 Malignant neoplasm of liver, not specified as primary or secondary (principal)
CPT/HCPCS: 36415; 47000; 76942; 85610; 88307; 88342; 99152; J2250; J3010; J7030

== ENCOUNTER 2024-02-07 12:25 | Outpatient (CLI) | payer MEDICARE, SELFPAY ==
--- NOTE | 2024-02-07 13:00 | PETR_ITS ---
PROCEDURE INFORMATION: Exam: PET/CT Skull Base to Mid-thigh Exam date and time: 02/07/2024 1:43 PM Age: 78 years old Clinical indication: Condition or disease; Primary cancer: Metastatic hepatocellula carcinoma to bone. There is a history of ultrasound-guided biopsy of the liver 01/31/2024. Provided history of radiation therapy January 2024. LABS AND CLINICAL REPORTS: Glucose: 133 mg/dl Treatment strategy for malignancy (PET staging): Initial Staging (PI) TECHNIQUE: Imaging protocol: Following at least four-hour fasting and following the injection of radiopharmaceutical, low dose CT images were obtained. Then, PET images were obtained. Attenuation corrected images were constructed using the CT scan. Fused images of PET and CT were reviewed. The standardized uptake values (SUV) reported below are maximum values within a region of interest, expressed in gm/ml. Exam includes orbital meatal line to mid-thigh. Radiopharmaceutical: 11.18 mCi F-18 FDG (Fluorodeoxyglucose), IV. Time of imaging post radiopharmaceutical administration: 1 hour Injection site: Left antecubital COMPARISON: CT abdomen pelvis w con* [id number] 01/03/2024 3:48 PM, CT chest, abdomen and pelvis 12/11/2023, lumbar spine MRI 12/11/2023 FINDINGS: Brain: Visualized brain has normal physiologic uptake. Pharynx: No abnormal uptake. Larynx: No abnormal uptake. Lungs, pleura and trachea: No abnormal uptake. Heart: Normal physiologic uptake. Mediastinal space: No abnormal uptake. Liver: A heterogeneously hypodense appearance of the liver is noted. Uptake within the liver appears largely physiologic, with a slightly more focal region of elevated uptake in the right liver lobe SUV max 3.6 on PET series 12, image 134. No well-defined lesion correlates to this uptake on the CT images. Gallbladder and bile ducts: No abnormal uptake. Pancreas: No abnormal uptake. Spleen: No abnormal uptake. Adrenal glands: No abnormal uptake. Kidneys and ureters: Normal physiologic uptake. A non radiotracer avid low-density structure arising from the left renal inferior pole is compatible with a benign cyst as was further characterized on the comparison CT from 01/03/2024. Stomach and bowel: An approximately 1 cm focus of marked uptake in the left lateral wall of the sigmoid colon on series 3, image 191 is noted, SUV max 8.0 which appears to be within a diverticulum without surrounding inflammatory changes on the CT images. Vasculature: No abnormal uptake. Lymph nodes: No abnormal uptake. No lymphadenopathy in the head, neck, chest, abdomen, pelvis, and extremities. Bones/joints: Degenerative changes in the spine are present. Vertebroplasty cement at the L1 vertebral body is noted with mild uptake in the left lateral aspect of the vertebral body, SUV max 2.7 on image 126. Mild uptake in the T8 vertebral body is noted, SUV max 3.0 on image 86 with a corresponding region of ovoid hypodensity on the CT images measuring 2.8 x 1.6 cm. A focus of elevated uptake in the region of the medial right acetabulum on series 3, image 192 on the fused images is noted, SUV max 8.7 without a well-defined lesion on the CT images likely represents artifactual uptake related to uptake in the adjacent urinary bladder lumen. Soft tissues: No abnormal uptake in the visualized head, neck, chest, abdomen, pelvis, and extremities. METRICS: Mediastinal blood pool: SUV max 2.2 PET/[facility] INIT[facility] [id number] IMPRESSION: 1. A diffusely heterogeneous appearance of the liver is noted with evidence of a focus relative of mildly increased area of uptake in the right lobe. Assessment for underlying lesions of the liver in this region is limited without intravenous contrast. A mildly hypermetabolic region of the provided history of hepatocellular carcinoma this region cannot be excluded. 2. A small focus of elevated uptake (SUV max 8.0) in the sigmoid colon is noted which appears to be within a diverticulum. Although no significant inflammatory changes are noted on the CT images, inflammatory uptake related to diverticular disease/mild diverticulitis is a consideration. A malignant etiology cannot be excluded. 3. Low-level uptake within the level of vertebroplasty procedure at L1 is noted which may be inflammatory in nature. The possibility of an underlying hypermetabolic neoplastic lesion is not excluded. 4. Uptake in the T8 vertebral body is noted within a lytic lesion concerning for a metastasis. 5. Additional nonurgent findings as detailed above.
== END 2024-02-07 12:26 | disposition home or self-care (01) ==
LOC: RAD 12:29
PROVIDERS: PCP Family Medicine; Visit Provider Internal Medicine
DX: C22.0 Liver cell carcinoma (principal); C79.51 Secondary malignant neoplasm of bone; R93.3 Abnormal findings on diagnostic imaging of other parts of digestive tract; R93.7 Abnormal findings on diagnostic imaging of other parts of musculoskeletal system
CPT/HCPCS: 78815; A9552

== ENCOUNTER 2024-02-09 07:28 | Oncology outpatient (recurring) (ONCR) | payer MEDICARE, SELFPAY ==
--- NOTE | 2024-01-31 09:54 | ONCRAD TMN_ITS ---
Radiation Oncology Weekly Treatment Management Patient: Lg Crabtree MR#: [id number] : 1945 Attending Physician: Dr. Radha Barrera Date of Service: 01/31/2024 Fractions: 2 of 5 Referring Physician(s) : Diagnosis: C22.9 - Malignant neoplasm of liver, not specified as primary or secondary, Diagnosed 01/23/2024 (Active) C79.51 - Secondary malignant neoplasm of bone, Diagnosed 01/23/2024 (Active) Radiotherapy to date: Course: bone mets L1, Treatment Site: T12-L2 Mets, Ref. ID: CTV, Energy: 15X, Dose/Fx (cGy): 400, #Fx: 2 / 5, Dose Correction (cGy): 0, Total Dose Delivered (cGy): 800, Start Date: 01/30/2024, Elapsed Days: 1 Reason for visit: The patient is being seen today as part of their regularly scheduled weekly on treatment visits to assess for acute toxicities from radiotherapy. Review of Systems: Patient noticed that an hour or so after his treatment yesterday his neck became quite stiff and sore and he is having difficulty turning his head. Vital Signs: Performed on 01/31/2024 9:30 AM BMI - 23.468 kg/m2 (high), Height - 66 in, Weight - 145.4 lbs, Temperature - 97.7 f, Pulse - 108 /min (high), Respiration - 16 /min, O2 Sat - 98 %, Pain - 0, Fatigue - 3 and BP - 119/ 73 mm(hg). Physical Exam: On exam his neck is somewhat stiff. He otherwise has no changes. Imaging: Radiation therapy imaging related to accurate target localization (i.e. KV, MV and CBCT) was reviewed. Appropriate changes, if any, were made to ensure treatment accuracy. Plan: I reviewed with him that at this point the stiffness in his neck was most likely just related to laying on the table and not due to the actual treatment itself. He does have a liver biopsy today and I have asked him to let them know that he is uncomfortable today. His had questions about his appetite as she has not been able to get him to eat anything and I recommended to them that they stop at the dispensary and lease picker edibles. Signed by: Dr. Radha Barrera 01/31/2024 9:52:38 AM
[2024-02-09 08:06] LABS: Basophils # 0.1 10^3/uL (0.0-0.1); Basophils % 1.1 %; Eosinophils # 0.3 10^3/uL (0.0-0.8); Eosinophils % 6.9 %; Hematocrit 39.2 % (37-53); Lymphocytes # 0.6 10^3/uL (0.8-4.8); Lymphocytes % 11.6 %; Mean Corpuscular HGB Conc 33.2 g/dL (30-55); Mean Corpuscular Hemoglobin 30.7 pg (27-33); Mean Corpuscular Volume 92.7 fl (82-101); Mean Platelet Volume 10.7 fL (7.4-10.4); Monocytes # 0.8 10^3/uL (0.2-0.9); Monocytes % 16.6 %; Neutrophils # 3.01 10^3/uL (1.8-7.7); Neutrophils % 63.2 %; Nucleated Red Blood Cells % 0 %; Platelet Count 361 10^3/cmm (157-399); Red Blood Count 4.23 10^6/uL (3.85-5.65); Red Cell Distribution Width 15.4 % (12.1-15.1); White Blood Count 4.76 10^3/uL (3.29-11.43)
[2024-02-09 09:47] LABS: Thyroid Stimulating Hormone 1.52 uIU/mL (0.27-4.20); Tumor Marker Alpha Fetoprotein 123.2 ng/mL (0-8.3)
[2024-02-09 09:58] LABS: Alanine Aminotransferase 81 U/L (0-41); Albumin Level 3.5 g/dL (3.5-5.2); Alkaline Phosphatase 444 U/L (40-130); Anion Gap 17.9 (5-19); Aspartate Amino Transferase 111 U/L (0-40); Blood Urea Nitrogen 16 mg/dL (8-23); Calcium 8.6 mg/dL (8.5-10.5); Carbon Dioxide 22 mmol/L (22-29); Chloride 100 mmol/L (98-107); Creatinine Clr Calc Pharmacy 71.5631; Globulin 3.8 g/dL (1.3-4.6); Glucose 160 mg/dL (65-115); Osmolality Calculated 285 mOsm/kg (285-295); Potassium 4.9 mmol/L (3.5-5.1); Sodium 135 mmol/L (136-145); Total Bilirubin 0.5 mg/dL (0.15-1.2); Total Protein 7.3 g/dL (6.6-8.7)
[2024-02-09 10:53] VITALS: BP 114/70; PULSE 88; RESP 16; TEMP 36.5; O2SAT 97
[2024-02-09] MEDS: sodium chloride 0.9% 250 ML 75 ML IV (11:01)
[2024-02-09] MEDS: durvalumab 1,500 MG in sodium chloride 0.9% 250 ML 280 MG IV (11:01)
[2024-02-09] MEDS: SODIUM CHLORIDE 0.9% IV (12:27)
[2024-02-09] MEDS: [UNRECOGNIZED DRUG - OTHER] IV (12:27)
[2024-02-09 13:46] VITALS: BP 125/77; PULSE 96; RESP 16; TEMP 36.8; O2SAT 96
--- NOTE | 2024-02-20 09:12 | N.ONRD TS_ITS ---
Radiation Oncology Treatment Summary Patient: Bro>Hernán MR#: [id number] : 1945> Age: 78> Sex: Male Dictated by: Dr. Radha Barrera Date of Service: 02/03/2024 Referring Physician(s) : Diagnosis: C22.9 - Malignant neoplasm of liver, not specified as primary or secondary, Diagnosed 01/23/2024 (Active) C79.51 - Secondary malignant neoplasm of bone, Diagnosed 01/23/2024 (Active) Radiotherapy to Date: Course: bone mets L1, Treatment Site: T12-L2 Mets, Ref. ID: CTV, Energy: 15X, Dose/Fx (cGy): 400, #Fx: 5 / 5, Dose Correction (cGy): 0, Total Dose Delivered (cGy): 2,000, Start Date: 01/30/2024, End Date: 02/03/2024, Elapsed Days: 4 Clinical Summary: The patient tolerated RT well. Had no acute SE Plan: End of treatment today. Continue on the above medication until the skin reaction resolves. Follow up with Medical Oncology. Signed by: Dr. Radha Barrera>02/20/2024 9:11:15 AM <<Signature on File>>
== END 2024-02-09 23:59 | disposition home or self-care (01) ==
PROVIDERS: Internal Medicine; PCP Family Medicine; Visit Provider Family Medicine
DX: Z53.9 Procedure and treatment not carried out, unspecified reason; Z51.12 Encounter for antineoplastic immunotherapy; Z51.0 Encounter for antineoplastic radiation therapy; C22.0 Liver cell carcinoma; C79.51 Secondary malignant neoplasm of bone; R63.0 Anorexia; Z79.891 Long term (current) use of opiate analgesic; R97.20 Elevated prostate specific antigen [PSA]; Z87.891 Personal history of nicotine dependence; G89.3 Neoplasm related pain (acute) (chronic); Z79.899 Other long term (current) drug therapy
CPT/HCPCS: 77014; 77336; 77387; 77412; 77427; 80053; 82105; 84153; 84443; 85025; 96413; 96415; 96417; 99024; 99215; A4222; G6002; J7050; J9173; J9347

== ENCOUNTER 2024-02-13 08:22 | Oncology outpatient (recurring) (ONCR) | payer MEDICARE, SELFPAY ==
[2024-02-13] MEDS: sodium chloride 0.9% 1,000 ML 999 ML IV (09:00)
[2024-02-13] MEDS: HYDROmorphone 1 mg/mL INJ 1 mL SUBCUT (09:08)
[2024-02-13 10:16] VITALS: BP 147/81; PULSE 101; TEMP 36.8; O2SAT 98
== END 2024-02-26 23:59 | disposition home or self-care (01) ==
PROVIDERS: PCP Family Medicine; Visit Provider Internal Medicine Medical Oncology
DX: C22.0 Liver cell carcinoma (principal); Z79.899 Other long term (current) drug therapy; C79.51 Secondary malignant neoplasm of bone; Z53.9 Procedure and treatment not carried out, unspecified reason; S32.010A Wedge compression fracture of first lumbar vertebra, initial encounter for closed fracture; Z85.828 Personal history of other malignant neoplasm of skin; R10.11 Right upper quadrant pain; R52 Pain, unspecified; X58.XXXA Exposure to other specified factors, initial encounter
CPT/HCPCS: 96360; 96372; 99214; J1170; J7030

== ENCOUNTER → 2024-02-15 12:56 | Outpatient (BNVA) | payer MEDICARE, SELFPAY | PROVIDERS: PCP Family Medicine; Visit Provider Surgery | DX: C22.0 Liver cell carcinoma; C79.51 Secondary malignant neoplasm of bone | CPT/HCPCS: 99204 ==

== ENCOUNTER → 2024-02-16 11:34 | Outpatient (BNVA) | payer MEDICARE, SELFPAY | PROVIDERS: PCP Family Medicine; Visit Provider Internal Medicine Medical Oncology | DX: Z53.9 Procedure and treatment not carried out, unspecified reason (principal) | CPT/HCPCS: 99214 ==

== ENCOUNTER 2024-02-18 13:46 | Emergency (ER) | payer MEDICARE, SELFPAY ==
[2024-02-18 13:53] VITALS: BP 121/77; PULSE 116; RESP 18; TEMP 36.4; O2SAT 97; BMI 21.7
--- NOTE | 2024-02-18 14:20 | ED_ITS ---
Documented by User: [email or web address] Alan 02/18/24 14:48 HPI - Skin/Abscess/Foreign Bdy General: Chief complaint: Skin/Abscess/Foreign Body Stated complaint: rash on body Time Seen by Provider: 02/18/24 14:02 Source: patient Mode of arrival: ambulatory Limitations: no limitations History of Present Illness: Patient is a 78-year-old male past medical history of hepatocellular carcinoma with metastasis who presents to the emergency department complaining of rash. Patient recently started a new immunotherapy 2 weeks ago, and was warned to watch out for diffuse, itching/painful rash. This rash started a couple days ago and he last saw his oncologist, Dr. Ardon, on and was prescribed colestipol. However, patient reports that the pills were too large for him to swallow and he was prescribed a powder form that would not come in until this upcoming Tuesday. He states he was trying to wait it out, however it was so painful that he did not sleep last night. He denies any breathing difficulties, angioedema, chest pains, or any other symptoms at this time. He states the rash started to spread and is now on his back, abdomen, chest, bilateral upper ext remities, and down to his buttocks. MD complaint: rash Onset (ago): day(s) Location: chest, back, LUE, RUE and buttocks Severity: moderate Quality: burning and pruritic Pain Consistency: constant Relieving factors: none Context: new medication (Oncological immunotherapy) Associated symptoms: Reports no associated symptoms; Deny chills, fever(s), nausea or vomiting Review of Systems General: Reports: 10 or more systems reviewed and unremarkable except in HPI and below Const: Denies: fever(s), chills or fatigue Eyes: Denies: change in vision ENMT: Denies: throat pain, ear or mastoid pain or nasal discharge Card: Denies: chest pain, palpitations, swelling of feet/ankles or lightheadedness Resp: Denies: dyspnea, productive cough or wheezing GI: Denies: abdominal pain, nausea, vomiting, diarrhea or constipation : Denies: flank pain, difficulty urinating, dysuria or urinary frequency Musc: Denies: neck pain, back pain or joint pain Skin/Breast: Reports: rash, pruritus and skin pain Neuro: Denies: headache(s), numbness in extremities or weakness in extremities PFSH ED PFSH: Medical History 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 GERD without esophagitis Essential tremor Social History Smoking and tobacco/nicotine status: former use of tobacco/nicotine Quit status (tobacco/nicotine): has quit using Year quit tobacco: 1971 Former quit date comment: total tobacco use 5-7 years Alcohol intake: current Substance/Drug Use: never Physical Exam Const: COMMON NORMALS: no acute distress, patient oriented x3 and no limitations GENERAL APPEARANCE: cooperative, comfortable and well developed ORIENTATION/CONSCIOUSNESS: Yes awake, Yes oriented to person, Yes oriented to place and Yes oriented to time HENMT: COMMON NORMALS: normocephalic, atraumatic, hearing grossly normal bilaterally, external ears normal and Normal external nose present HEAD & SCALP: normocephalic and atraumatic FACE & SINUS: normal facial exam NOSE: Normal external nose present and Normal nares present EXTERNAL EAR: Yes external ears normal MOUTH: Normal oral and palatal mucosa present, lip normal and tongue normal THROAT: posterior oropharynx normal OTHER: No oral/mucosal involvement of the rash Eye: COMMON NORMALS: Equal, round and reactive pupils present, EOMs intact bilaterally and conjunctivae normal CONJUNCTIVA: Yes conjunctivae normal PUPIL: Yes Equal, round and reactive pupils present OTHER: No periorbital rash noted Neck/C-Spine: COMMON NORMALS: full ROM, supple and no JVD Resp: COMMON NORMALS: normal respiratory effort, No retractions, No use of accessory muscles and clear to auscultation bilaterally AUSCULTATION: clear to auscultation bilaterally Cardio: COMMON NORMALS: no JVD, regular rate, regular rhythm, No clicks present (Cardio), No murmurs present (Cardio) and No rub (Cardio) RATE: regular rate RHYTHM: regular rhythm Extremity: COMMON NORMALS: normal to inspection, full ROM and capillary refill normal GENERAL: Yes normal exam except as noted (See skin findings) Neuro: COMMON NORMALS: patient oriented x3, moves all extremities, no focal motor deficits and no sensory deficits noted SENSORIUM/ORIENTATION: Yes oriented to person, Yes oriented to place and Yes oriented to time Psych: COMMON NORMALS: mental status grossly normal and Normal thought process present THOUGHT PROCESS: Normal thought process present Skin: NARRATIVE SKIN EXAM: Diffuse urticarial rash noted to the patient's mid to low back with extension to the buttocks. Rash is also noted to the superior portion of the abdomen spreading up to the chest. He also has a rash on his bilateral upper extremities, worse over the extensor surfaces. No lichenification or excoriations. Course Vital Signs: Vital signs: Vital Signs Temperature 97.6 F 02/18/24 13:53 Pulse Rate 116 H 02/18/24 13:53 Respiratory Rate 18 02/18/24 13:53 Blood Pressure 121/77 02/18/24 13:53 Pulse Oximetry 97 02/18/24 13:53 Oxygen Delivery Me thod Room Air 02/18/24 13:53 MDM - Skin/Abscess/Foreign Bdy Medicial Decision Making Patient was seen and evaluated in the emergency department today for a rash associated with recent immunotherapy infusion. Patient is due to chicken picker prescription for powder form colestipol on Tuesday, but rash got to painful for him presently. Patient's vitals on arrival normal. Examination showed diffuse urticarial rash, however no angioedema or oral/mucosal involvement noted. Upon further review, we can offer him a dose in powder form of a similar bile acid sequestrant for him to take in the interim until he picks up his prescription on Tuesday. He will be given a dose here and a prescription sent to his pharmacy. Patient agrees with this plan and reasons to return are discussed. I put out a consult for Dr. Ardon and will discuss the patient's ED visit when he calls back. No radiology studies performed this visit Discharge Plan Discharge Patient Disposition: Home Clinical Impression: Drug-induced skin rash Condition: Stable Prescriptions: New Questran 4 gram powder 4 g PO BID Qty: 348.6 0RF Rx Instructions: administer w/meal; avoid other meds within 1hr before or 4-6hr after dose No Action (DME) Embrace PRO test strips Strip See Rx Instructions .ROUTE .MEDSUPPLY Qty: 10 Rx Instructions: As directed (DME) blood-glucose meter [Embrace PRO Glucose meter] Misc See Rx Instructions .ROUTE .MEDSUPPLY Qty: 1 Rx Instructions: As directed (DME) lancets [Embrace Lancets] 30 gauge misc See Rx Instructions .ROUTE .MEDSUPPLY Qty: 100 Rx Instructions: As directed hydromorphone 2 mg tablet 2 mg PO Q3H MDD 8 tablets 3 Days Qty: 24 0RF omeprazole 20 mg capsule,delayed release(DR/EC) 20 mg PO DAILY Qty: 90 3RF prednisone 10 mg tablet 10 mg PO BID Qty: 60 0RF hydromorphone 4 mg tablet 2 - 4 mg PO Q4H MDD 4 tablets PRN (Reason: pain) 7 Days Qty: 30 0RF gabapentin 300 mg capsule 300 mg PO BID Qty: 60 3RF cholestyramine (with sugar) 4 gram powder 4 g PO BID Qty: 348.6 0RF Rx Instructions: administer w/meal; avoid other meds within 1hr before or 4-6hr after dose propranolol 10 mg tablet 30 mg PO TID Rx Instructions: TAKE 3 TABLETS BY MOUTH THREE TIMES DAILY (DME) diabetic supplies, miscellan. Misc See Rx Instructions .Route Qty: 1 0RF Rx Instructions: As directed Glucometer, 90 lancets and strips Discharge Orders: Discharge ED (Routine); Ordered 02/18/24 Ordered By: Audi Ortega Referrals: Beau Francis MD [Primary Care Provider] - Discharge Diet: Usual diet Discharge Activity: Resume usual activity Patient Instructions: Acute Rash (ED) Activity Restrictions/Additional Instructions: Cholestyramine as prescribed. group fitness assistant department head prescribed colestipol on Tuesday as planned, and follow-up with Dr. Ardon. Return with any new or concerning s ymptoms. 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 GERD without esophagitis Essential tremor Social History Smoking and tobacco/nicotine status: former use of tobacco/nicotine Quit status (tobacco/nicotine): has quit using Year quit tobacco: 1971 Former quit date comment: total tobacco use 5-7 years Alcohol intake: current Substance/Drug Use: never Course Vital Signs: Vital signs: Vital Signs Temperature 97.6 F 02/18/24 13:53 Pulse Rate 116 H 02/18/24 13:53 Respiratory Rate 18 02/18/24 13:53 Blood Pressure 121/77 02/18/24 13:53 Pulse Oximetry 97 02/18/24 13:53 Oxygen Delivery Me thod Room Air 02/18/24 13:53 MDM - Skin/Abscess/Foreign Bdy Medicial Decision Making Patient was seen and evaluated in the emergency department today for a rash associated with recent immunotherapy infusion. Patient is due to chicken picker prescription for powder form colestipol on Tuesday, but rash got to painful for him presently. Patient's vitals on arrival normal. Examination showed diffuse urticarial rash, however no angioedema or oral/mucosal involvement noted. Upon further review, we can offer him a dose in powder form of a similar bile acid sequestrant for him to take in the interim until he picks up his prescription on Tuesday. He will be given a dose here and a prescription sent to his pharmacy. Patient agrees with this plan and reasons to return are discussed. I put out a consult for Dr. Ardon and will discuss the patient's ED visit when he calls back. Chart reviewed Discharge Plan Discharge Patient Disposition: Home Clinical Impression: Drug-induced skin rash Condition: Stable Prescriptions: New Questran 4 gram powder 4 g PO BID Qty: 348.6 0RF Rx Instructions: administer w/meal; avoid other meds within 1hr before or 4-6hr after dose No Action (DME) Embrace PRO test strips Strip See Rx Instructions .ROUTE .MEDSUPPLY Qty: 10 Rx Instructions: As directed (DME) blood-glucose meter [Embrace PRO Glucose meter] Misc See Rx Instructions .ROUTE .MEDSUPPLY Qty: 1 Rx Instructions: As directed (DME) lancets [Embrace Lancets] 30 gauge misc See Rx Instructions .ROUTE .MEDSUPPLY Qty: 100 Rx Instructions: As directed hydromorphone 2 mg tablet 2 mg PO Q3H MDD 8 tablets 3 Days Qty: 24 0RF omeprazole 20 mg capsule,delayed release(DR/EC) 20 mg PO DAILY Qty: 90 3RF prednisone 10 mg tablet 10 mg PO BID Qty: 60 0RF hydromorphone 4 mg tablet 2 - 4 mg PO Q4H MDD 4 tablets PRN (Reason: pain) 7 Days Qty: 30 0RF gabapentin 300 mg capsule 300 mg PO BID Qty: 60 3RF cholestyramine (with sugar) 4 gram powder 4 g PO BID Qty: 348.6 0RF Rx Instructions: administer w/meal; avoid other meds within 1hr before or 4-6hr after dose propranolol 10 mg tablet 30 mg PO TID Rx Instructions: TAKE 3 TABLETS BY MOUTH THREE TIMES DAILY (DME) diabetic supplies, miscellan. Misc See Rx Instructions .Route Qty: 1 0RF Rx Instructions: As directed Glucometer, 90 lancets and strips Discharge Orders: Discharge ED (Routine); Ordered 02/18/24 Ordered By: Audi Ortega Referrals: Beau Francis MD [Primary Care Provider] - Discharge Diet: Usual diet Discharge Activity: Resume usual activity Patient Instructions: Acute Rash (ED) Activity Restrictions/Additional Instructions: Cholestyramine as prescribed. group fitness assistant department head prescribed colestipol on Tuesday as planned, and follow-up with Dr. Ardon. Return with any new or concerning symptoms. Coding Level of Care Code ED Flying Teacher for Bridger Brown
[2024-02-18] MEDS: cholestyramine powder 4 gm Pkt PO (15:10)
== END 2024-02-18 15:17 | disposition home or self-care (01) ==
PROVIDERS: Emergency Provider Physician Assistant; PCP Family Medicine
DX: L27.0 Generalized skin eruption due to drugs and medicaments taken internally (principal); T50.995A Adverse effect of other drugs, medicaments and biological substances, initial encounter; Z85.05 Personal history of malignant neoplasm of liver; Z85.830 Personal history of malignant neoplasm of bone; Z87.891 Personal history of nicotine dependence
CPT/HCPCS: 99283

== ENCOUNTER 2024-02-21 09:36 | Day surgery (SDC) | payer MEDICARE, SELFPAY ==
[2024-02-21] VITALS (10 sets, daily range): BP systolic 106–145; BP diastolic 65–112; PULSE 9–104; RESP 18–20; TEMP 36.3–37; O2SAT 95–99; BMI 22.1
--- NOTE | 2024-02-21 09:47 | SC_ITS ---
WS: [id number] C-ARM RADIOGRAPHS CHEST; 2 IMAGES HISTORY: Mediport placement COMPARISON: None available. Left-sided Mediport placement. Tip is in the expected location at the caval atrial junction. IMPRESSION: Intraoperative imaging during Mediport placement.
--- NOTE | 2024-02-21 09:47 | XR_ITS ---
WS: [id number] Exam: XR chest 1V portable [id number] Date/Time of Exam: 02/21/2024 9:47 AM Reason For Exam: Postop mediport placement No priors. The lungs are fully expanded and clear. Normal cardiomediastinal silhouette. A LEFT subclavian port e nds in the lower one third of the SVC. Bony structures are intact. Signs of L1 vertebroplasty. IMPRESSION: 1. LEFT subclavian port in satisfactory location. 2. No acute cardiopulmonary process.
--- NOTE | 2024-02-21 09:54 | W.PM.OPSUD ---
Surgery/Procedure H&P Update DATE OF PROCEDURE: February 21, 2024 DATE H&P PERFORMED: 02/15/24 H&P UPDATE INFORMATION: I have reviewed H&P completed within last 30 days, I have examined patient prior to procedure and No changes to prior documentation PLANNED PROCEDURE: Operation Date: 02/21/24 11:15 Proposed Procedures p Portacath Placement(Not Applicable) - Familia Gabriel DO
[2024-02-21] MEDS: sodium chloride 0.9% 1,000 ML 30 ML IV (10:10)
--- NOTE | 2024-02-21 10:31 | ANES.PREANE2 ---
Pre-Anesthetic Assessment Height/Weight: Height 1.68 m Weight 62.142 kg Temp Pulse Resp BP Pulse Ox O2 Del Method 98.6 F 100 18 125/80 99 Room Air 02/21/24 10:18 02/21/24 10:18 02/21/24 10:18 02/21/24 10:18 02/21/24 10:18 02/21/24 10:18 Operation Date: 02/21/24 11:15 Proposed Procedures p Portacath Placement(Not Applicable) - Familia Gabriel DO Familial anesthetic complications: None Was Beta Debby taken within 24 hours: N/A Was Clonidine taken within 24 hours: N/A Last intake: Intake Last Liquid Date 02/20/24 Last Liquid Time 21:30 Last Solid Date 02/20/24 Last Solid Time 21:30 Social No alcohol and No tobacco Exam alert, oriented x 3, clear to auscultation bilaterally and regular rate & rhythm Airway Mallampati: Class I Dentition: full CV/HEM Hypertension Hepatic hepatocellular carcinoma GI Gastroesophageal Reflux Disease Neuropsych tremor Anesthetic Plan ASA status: 4 Risk of > 500 ml blood loss (7ml/kg in children): No Medications/Allergies Home Medications Medication Instructions Recorded Confirmed Last Taken Type omeprazole 20 mg capsule,delayed 20 mg PO DAILY #90 caps 03/29/23 02/20/24 02/20/24 Rx release diabetic supplies, miscellan. #1 ea 12/13/23 02/16/24 01/27/24 Rx blood sugar diagnostic (Embrace #10 ea 12/21/23 02/16/24 01/27/24 History PRO test strips) blood-glucose meter (Embrace PRO #1 ea 12/21/23 02/16/24 01/27/24 History Blood Glucose Meter) lancets 30 gauge (Embrace Lancets) #100 ea 12/21/23 02/16/24 01/27/24 History hydromorphone 2 mg tablet 2 mg PO Q3H pain 02/20/24 02/20/24 02/20/24 History lorazepam 1 mg tablet 1 mg PO TID PRN anxiety #20 tabs 02/20/24 02/20/24 02/20/24 Rx prednisone 10 mg tablet 10 mg PO DIRECTED 02/20/24 02/20/24 Unknown History Allergies Allergy/AdvReac Type Severity Reaction Status Date / Time No Known Allergies Allergy Verified 02/20/24 09:34 Current Medications Generic Name Dose Route Start Last Admin Trade Name Freq PRN Reason Stop Dose Admin Sodium Chloride 1,000 mls @ 30 mls/hr 02/21/24 10:00 02/21/24 10:10 Sodium Chloride 0.9% IV 02/22/24 09:59 30 mls/hr .Q24H SHIVA Administration PFSH Anesthesia Medical History 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
[2024-02-21] MEDS: ceFAZolin 2,000 MG in sodium chloride 0.9% (plus) 50 ML 100 MG IV (10:32)
[2024-02-21] MEDS: heparin, porcine 1,000 unit/mL INJ 10 mL 10000 UNIT IRRIGATION (11:02)
[2024-02-21] MEDS: lidocaine-epi 2% PF 1:200,000 20 mL SDV XX (11:03)
--- NOTE | 2024-02-21 11:14 | PM.OP ---
Operative Report Date of procedure: February 21, 2024 Pre-op diagnosis: Metastatic hepatocellular carcinoma Post-op diagnosis: same Procedure done: Mediport placement Intraoperative interpretation of fluoroscopy Implants: PowerPort Specimens removed/disposition: None Surgeon: Familia Gabriel DO Anesthesia: MAC and Local Estimated blood loss (mL): 5 Complications: None apparent Brief History: This very pleasant 78-year-old gentleman with metastatic hepatocellular carcinoma. Oncology requested Mediport placement for chemotherapy access. The risk and benefits were explained and documented. Procedure: They put another order I will do right now things the patient was taken to the operating room and placed supine on the operating room table. All bony prominences were padded. She was given IV sedation and monitored throughout the case by the anesthesia personnel. SCDs were placed and turned on. The arms were tucked to the side. Patient received Ancef 2 g preoperatively IV. The bilateral chest wall was prepped and draped in usual sterile fashion using chlorhexidine base prep. Sterile drapes were applied. We did procedure pause prior to beginning. An 18 gauge needle was placed in the left subclavian vein. Dark, nonpulsatile blood was aspirated. A guidewire was placed through the needle centrally toward the atrial/vena caval junction. Fluoroscopy visualized good placement. The needle was removed and the guidewire was clipped to the drape with a hemostat. Further local anesthetic was infiltrated in the soft tissues of the left chest wall and a #15 blade was used to make a horizontal skin incision. A subcutaneous Mediport pocket was created using Bovie cautery, dissecting down through the skin and subcutaneous tissues. Meticulous hemostasis was achieved. The Mediport was sutured in position using 3-0 vicryl suture x2 stitches. A #15 blade was used to make a small skin taylor around the guidewire insertion area. The Mediport tubing was tunneled through the subcutaneous tissues up to the needle insertion location. A dilator with a peel-away sheath was placed over the guidewire and placed centrally. After measuring the Mediport tubing was cut to length so that the tip would end at the atrial/vena caval junction. The inner cannula and the guidewire were removed, leaving the dilator sheath in place. The Mediport was flushed. The tip of the catheter was inserted through the peel-away sheath and the peel-away sheath removed in the standard fashion. The Mediport was accessed with a straight Ly needle and dark, nonpulsatile blood was aspirated and flushed using heparinized saline to hep-lock the Mediport. Final fluoroscopy visualization showed no kink in the catheter and the tip of the Mediport tubing near the atrial/vena caval junction. No obvious pneumothorax was identified. Both skin incisions were thoroughly irrigated and suctioned dry. Meticulous hemostasis noted. The dermis was approximated with 3-0 Vicryl in an interrupted fashion. Skin was closed with Dermabond. Patient was awakened from anesthesia and transferred via her cart to the recovery room in stable condition. All needle, sponge, and instrument counts were correct per the operating personnel x2 counts.
--- NOTE | 2024-02-21 11:51 | SUR.PHASEI ---
11:20 RECEIVED PT FROM OR STAFF. RESPONDING TO VERBAL. GO CHEST RISE AND FALL. VENTILATING WELL. NSR ON MONITOR. 11:45 A+O X3 DENIES PAIN. WARMER APPLIED TO PT.
--- NOTE | 2024-02-21 12:35 | ANE.PACU2 ---
Inpatient post-anesthesia follow up: Airway intact: Yes Vital signs: Temperature 98.1 F Pulse Rate 104 Respiratory Rate 18 Blood Pressure 106/84 Pulse Oximetry 95 Oxygen Delivery Me thod Room Air Oxygen Flow Rate Fraction of Inspir ed Oxygen Hydration adequate: Yes Nausea and vomiting: No Pain level: 1 Mental status: Baseline
== END 2024-02-21 12:35 | disposition home or self-care (01) ==
PROVIDERS: PCP Family Medicine; Visit Provider Surgery
PROC: (CPT 36561; principal; 2024-02-21 11:15)
DX: C22.0 Liver cell carcinoma (principal); I10 Essential (primary) hypertension; K21.9 Gastro-esophageal reflux disease without esophagitis; Z87.891 Personal history of nicotine dependence
CPT/HCPCS: 36561; 71045; 76000; 77001; C1788; J0690; J1644; J2704; J3010; J7030

== ENCOUNTER 2024-02-24 08:47 | Emergency (ER) | payer MEDICARE, SELFPAY ==
[2024-02-24 09:16] VITALS: BP 153/97; PULSE 104; RESP 16; TEMP 36.5; O2SAT 99
[2024-02-24 09:41] VITALS: BP 153/97; PULSE 109; O2SAT 99
--- NOTE | 2024-02-24 09:52 | XR_ITS ---
WS: [id number] Exam: XR chest 1V portable [id number] Date/Time of Exam: 02/24/2024 10:16 AM Reason For Exam: cough Comparison 02/21/2024. Lungs are clear and fully inflated. Normal cardiomediastinal silhouette. Bony structures are intact. LEFT subclavian port ends in the lower one third of the SVC in satisfactory position. IMPRESSION: 1. No acute cardiopulmonary finding.
--- NOTE | 2024-02-24 09:53 | ED_ITS ---
HPI - Weakness 2 General: Chief complaint: Weakness Stated complaint: Weakness Time Seen by Provider: 02/24/24 09:29 Source: patient and family () Mode of arrival: wheelchair Limitations: no limitations History of Present Illness: Patient is a 78-year-old male with a history of hepatocellular carcinoma with bony metastasis presents to ED today along with his for multiple complaints. He states his overall condition has deteriorated since November. He is getting weaker and falling. Gait is shuffling. states he is not sleeping and wakes up every 10 to 15 minutes roams the house sencelessly . She feels like he has been confused. He is not eating. Continued weight loss. Complains of back pain. Has had a cough over the past few days. Continued itchy rash. Has tried Benadryl, bile acid sequestrant, and steroids for rash all without much relief. Has been put on Ativan recently to help with sleep but it is not helping. Recent port placement. Undergoing immunotherapy at the oncology center. Complaint: generalized weakness Onset (ago): week(s) Duration: constant Location: generalized Migration: none Severity: severe Relieving factors: none Exacerbating factors: none Associated symptoms: Reports confusion, decreased appetite, nausea and rash; Denies chest pain, chills, dysuria, fever(s), headache(s), syncope or vomiting Review of Systems 2 Const: Reports: change in appetite, change in weight, fatigue, malaise and change in sleep pattern; Denies: fever(s) or chills Eyes: Denies: change in vision, blurry vision, photophobia, floaters or seeing flashes Card: Denies: chest pain, palpitations, irregular heart rhythm, syncope or pre-syncope Resp: Reports: productive cough; Denies: dyspnea, wheezing or hemoptysis GI: Reports: nausea; Denies: vomiting : Denies: flank pain, difficulty urinating, dysuria, urinary frequency, urinary urgency or urinary hesitancy Musc: Reports: back pain Skin/Breast: Reports: rash and pruritus Neuro: Reports: frequent falls, confusion, behavioral changes and difficulty communicating thoughts; Denies: headache(s), numbness in extremities, sensory changes, dizziness, Slurred speech present or seizure-like activity PFS ED 2 PFSH: Medical History 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 GERD without esophagitis Essential tremor Social History Smoking and tobacco/nicotine status: former use of tobacco/nicotine Quit status (tobacco/nicotine): has quit using Year quit tobacco: 1971 Former quit date comment: total tobacco use 5-7 years Alcohol intake: current Substance/Drug Use: never Physical Exam 2 Const: COMMON NORMALS: no acute distress, patient oriented x3, no limitations and alert GENERAL APPEARANCE: cooperative ORIENTATION/CONSCIOUSNESS: Yes awake, Yes oriented to person and Yes oriented to time OTHER: chronically ill appearing HENMT: COMMON NORMALS: normocephalic and atraumatic HEAD & SCALP: normal to inspection, normocephalic and atraumatic Neck/C-Spine: COMMON NORMALS: full ROM, no lymphadenopathy, supple and no meningeal signs Chest: COMMONS NORMALS: normal inspection of the chest Resp: COMMON NORMALS: normal respiratory effort and clear to auscultation bilaterally AUSCULTATION: clear to auscultation bilaterally Cardio: COMMON NORMALS: regular rate and regular rhythm RATE: regular rate RHYTHM: regular rhythm GI: INSPECTION: Yes abdominal distension AUSCULTATION: Yes normoactive bowel sounds PALPATION: No Tenderness to palpation present (GI) : COMMON NORMALS: Yes no CVA tenderness BLADDER/KIDNEY EXAM: Yes no CVA tenderness Back/Pelvis: COMMON NORMALS: no CVA tenderness and thoracic and lumbar spine normal to inspection Extremity: COMMON NORMALS: normal to inspection Neuro: AMANDA COMA SCALE: document GCS findings Charlotte coma scale eye opening: Spontaneous Charlotte coma scale verbal response: Orientated Amanda coma scale motor response: Obey commands Amanda coma scale total score: 15 COMMON NORMALS: patient oriented x3, moves all extremities, no focal motor deficits and no sensory deficits noted SENSORIUM/ORIENTATION: Yes alert, Yes oriented to person and Yes oriented to time MENINGEAL SIGNS: Yes no meningeal signs Skin: NARRATIVE SKIN EXAM: erythematous macular excoriated rash noted mainly to UEs Course 2 Vital Signs: Vital signs: Vital Signs Temperature 97.7 F 02/24/24 09:16 Pulse Rate 105 H 02/24/24 12:04 Respiratory Rate 16 02/24/24 09:16 Blood Pressure 133/87 02/24/24 12:04 Pulse Oximetry 99 02/24/24 12:04 Oxygen Delivery Me thod Room Air 02/24/24 12:04 MDM - Weakness Medical Decision Making Patient has had slow deterioration past 2 months or so. His main complaint today is not sleeping problem he has other complaints that have been present longer such as worsening weakness, confusion, not eating, weight loss, fatigue. He has underwent recent port placement. He has no complaints of fever. Does have a cough. Durvalumab/recent immunotherapy drug can cause cough/pneumonitis. He arrives with stable vital signs. He is mildly tachycardic. Looks like this has been present over the past 2 weeks or so by previous documentation. Blood work today showing a white count of 18.5. His CXR is normal as well as his UA. Again he has no fevers. Question whether this is stress versus recent surgery related versus infection. Chemistry showing elevated LFTs which are chronic. Ammonia is 10. Discussed case with Dr. Skaggs who agrees with plan for prophylactic antibiotics with Levaquin. Blood cultures obtained prior to discharge. Will try him on Trazodone for sleep. Will have case management try to get him an ER follow-up with oncology. Return precautions given. Medical Records I reviewed the patient's medical records. Lab Data I reviewed the patient's lab results. 02/24/24 11:55 02/24/24 11:55 Laboratory Results WBC 18.51 10^3/uL (3.29-11.43) H 02/24/24 11:55 RBC 5.14 10^6/uL (3.85-5.65) 02/24/24 11:55 Hgb 15.80 g/dL (11.27-16.99) 02/24/24 11:55 Hct 47.3 % (37-53) 02/24/24 11:55 MCV 92.0 fl (82-101) 02/24/24 11:55 MCH 30.7 pg (27-33) 02/24/24 11:55 MCHC 33.4 g/dL (30-55) 02/24/24 11:55 RDW 15.3 % (12.1-15.1) H 02/24/24 11:55 Plt Count 581 10^3/cmm (157-399) H 02/24/24 11:55 MPV 10.5 fL (7.4-10.4) H 02/24/24 11:55 Neut % (Auto) 71.0 % 02/24/24 11:55 Lymph % (Auto) 15.3 % 02/24/24 11:55 Davidson % (Auto) 7.7 % 02/24/24 11:55 Eos % (Auto) 1.1 % 02/24/24 11:55 Baso % (Auto) 0.6 % 02/24/24 11:55 Neut # (Auto) 13.13 10^3/uL (1.8-7.7) H 02/24/24 11:55 Lymph # (Auto) 2.8 10^3/uL (0.8-4.8) 02/24/24 11:55 Davidson # (Auto) 1.4 10^3/uL (0.2-0.9) H 02/24/24 11:55 Eos # (Auto) 0.2 10^3/uL (0.0-0.8) 02/24/24 11:55 Baso # (Auto) 0.1 10^3/uL (0.0-0.1) 02/24/24 11:55 Nucleated RBC % (auto) 0.1 % 02/24/24 11:55 Nucleated RBCs # 0.0 /100WBC 02/24/24 11:55 Sodium 139 mmol/L (136-145) 02/24/24 11:55 Potassium 4.8 mmol/L (3.5-5.1) 02/24/24 11:55 Chloride 100 mmol/L (98-107) 02/24/24 11:55 Carbon Dioxide 22 mmol/L (22-29) 02/24/24 11:55 Anion Gap 21.8 (5-19) H 02/24/24 11:55 BUN 23 mg/dL (8-23) 02/24/24 11:55 Creatinine 1.0 mg/dL (0.7-1.2) 02/24/24 11:55 GFR Calculation Not Reportable 02/24/24 11:55 Glucose 106 mg/dL (65-115) 02/24/24 11:55 Calculated Osmolality 292 mOsm/kg (285-295) 02/24/24 11:55 Calcium 9.4 mg/dL (8.5-10.5) 02/24/24 11:55 Total Bilirubin 0.6 mg/dL (0.15-1.2) 02/24/24 11:55 AST 140 U/L (0-40) H 02/24/24 11:55 ALT 164 U/L (0-41) H 02/24/24 11:55 Alkaline Phosphatase 465 U/L (40-130) H 02/24/24 11:55 Ammonia 10 umol/L (16-60) L 02/24/24 11:55 Total Protein 7.9 g/dL (6.6-8.7) 02/24/24 11:55 Albumin 4.2 g/dL (3.5-5.2) 02/24/24 11:55 Globulin 3.7 g/dL (1.3-4.6) 02/24/24 11:55 Urine Color Yellow (Yellow) 02/24/24 10:29 Urine Appearance Clear (CLEAR) 02/24/24 10:29 Urine pH 6 (5-7) 02/24/24 10:29 Ur Specific Squire 1.010 (1.005-1.030) 02/24/24 10:29 Urine Protein Neg (Negative) 02/24/24 10:29 Urine Glucose (UA) Norm (Normal) 02/24/24 10:29 Urine Ketones Negative (Negative) 02/24/24 10:29 Urine Blood Neg (Negative) 02/24/24 10:29 Urine Nitrate Negative (Negative) 02/24/24 10:29 Urine Bilirubin Neg (Negative) 02/24/24 10:29 Urine Urobilinogen Neg mg/dL (Negative) 02/24/24 10:29 Ur Leukocyte Esterase Negative (Negative) 02/24/24 10:29 All radiology interpretation(s) finalized by discharge Discharge Plan Discharge Patient Disposition: Home Clinical Impression: 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 Misc See Rx Instructions .Route Qty: 1 0RF Rx Instructions: As directed Glucometer, 90 lancets and strips hydromorphone 2 mg tablet 2 mg PO Q3H MDD 8 tablets Daily Multi-Vitamin Tablet 1 tab PO DAILY cetirizine 10 mg tablet 10 mg PO DAILY PRN (Reason: Allergy Symptoms) ibuprofen 200 mg Tablet 400 mg PO Q6H PRN (Reason: Pain) Discharge Orders: Discharge ED (Routine); Ordered 02/24/24 Ordered By: Sagrario Contreras Referrals: Beau Francis MD [Primary Care Provider] - Activity Restrictions/Additional Instructions: As we discussed I am going to start you on trazodone to see if this will allow you to get some rest. You may take this along with the Ativan that was given to you by your primary care provider. We are placing you on prophylactic antibiotics given your elevated white count today. As we discussed I will have case management referral placed to get you oncology ER follow-up sooner than your scheduled appointment on 03/08. Blood cultures will be obtained prior to discharge and you will be contacted if these are abnormal. Coding Level of Care Code ED [facility] for Bridger Brown
[2024-02-24 10:53] LABS: Add Urine Microscopic? NO; Charge for UA Resulting for Rev
[2024-02-24 10:58] LABS: Bilirubin Urine Neg (Negative); Blood Urine Neg (Negative); Glucose Urine UA Norm (Normal); Ketones Urine Negative (Negative); Leukocyte Esterase Urine Negative (Negative); Nitrate Urine Negative (Negative); Protein Urine Neg (Negative); Urine Appearance Clear (CLEAR); Urine Color Yellow (Yellow); Urobilinogen Urine Neg (Negative); pH Urine 6 (5-7)
[2024-02-24 12:04] VITALS: BP 133/87; PULSE 105; O2SAT 99
[2024-02-24 12:09] LABS: Basophils # 0.1 10^3/uL (0.0-0.1); Basophils % 0.6 %; Eosinophils # 0.2 10^3/uL (0.0-0.8); Eosinophils % 1.1 %; Hematocrit 47.3 % (37-53); Lymphocytes # 2.8 10^3/uL (0.8-4.8); Lymphocytes % 15.3 %; Mean Corpuscular HGB Conc 33.4 g/dL (30-55); Mean Corpuscular Hemoglobin 30.7 pg (27-33); Mean Platelet Volume 10.5 fL (7.4-10.4); Monocytes # 1.4 10^3/uL (0.2-0.9); Monocytes % 7.7 %; Neutrophils # 13.13 10^3/uL (1.8-7.7); Nucleated Red Blood Cells % 0.1 %; Platelet Count 581 10^3/cmm (157-399); Red Blood Count 5.14 10^6/uL (3.85-5.65); Red Cell Distribution Width 15.3 % (12.1-15.1); White Blood Count 18.51 10^3/uL (3.29-11.43)
[2024-02-24 12:26] LABS: Ammonia 10 umol/L (16-60)
[2024-02-24 12:31] LABS: Alanine Aminotransferase 164 U/L (0-41); Albumin Level 4.2 g/dL (3.5-5.2); Alkaline Phosphatase 465 U/L (40-130); Aspartate Amino Transferase 140 U/L (0-40); Blood Urea Nitrogen 23 mg/dL (8-23); Calcium 9.4 mg/dL (8.5-10.5); Carbon Dioxide 22 mmol/L (22-29); Chloride 100 mmol/L (98-107); Creatinine Clr Calc Pharmacy 55.7991; Globulin 3.7 g/dL (1.3-4.6); Glucose 106 mg/dL (65-115); Osmolality Calculated 292 mOsm/kg (285-295); Sodium 139 mmol/L (136-145); Total Bilirubin 0.6 mg/dL (0.15-1.2); Total Protein 7.9 g/dL (6.6-8.7)
[2024-02-24 12:44] LABS: Anion Gap 21.8 (5-19); Potassium 4.8 mmol/L (3.5-5.1)
[2024-02-24 13:47] VITALS: BP 133/87; PULSE 114; O2SAT 98
--- NOTE | 2024-02-29 08:59 | DCPLANNER ---
Message sent to Oncology for urgent appointment
== END 2024-02-24 13:48 | disposition home or self-care (01) ==
PROVIDERS: Emergency Provider Physician Assistant; PCP Family Medicine
DX: C22.0 Liver cell carcinoma (principal); C79.51 Secondary malignant neoplasm of bone; Z87.891 Personal history of nicotine dependence
CPT/HCPCS: 71045; 80053; 81003; 82140; 85025; 87040; 99284

== ENCOUNTER → 2024-03-05 09:46 | Outpatient (BNVA) | payer MEDICARE, SELFPAY | PROVIDERS: PCP Family Medicine; Visit Provider Surgery | DX: Z95.828 Presence of other vascular implants and grafts (principal); C79.51 Secondary malignant neoplasm of bone; C22.0 Liver cell carcinoma | CPT/HCPCS: 99214 ==

== ENCOUNTER 2024-03-16 08:30 | Oncology outpatient (recurring) (ONCR) | payer MEDICARE, SELFPAY ==
[2024-03-01] MEDS: dexamethasone 10 mg/mL INJ 12 MG IM (09:19)
[2024-03-08 09:50] LABS: Basophils # 0.1 10^3/uL (0.0-0.1); Basophils % 0.4 %; Hematocrit 43.1 % (37-53); Lymphocytes # 0.7 10^3/uL (0.8-4.8); Lymphocytes % 4.5 %; Mean Corpuscular HGB Conc 33.9 g/dL (30-55); Mean Corpuscular Hemoglobin 31.2 pg (27-33); Mean Corpuscular Volume 92.1 fl (82-101); Mean Platelet Volume 10.7 fL (7.4-10.4); Monocytes # 0.9 10^3/uL (0.2-0.9); Monocytes % 5.5 %; Neutrophils # 13.56 10^3/uL (1.8-7.7); Neutrophils % 84.6 %; Nucleated Red Blood Cells % 0 %; Platelet Count 280 10^3/cmm (157-399); Red Blood Count 4.68 10^6/uL (3.85-5.65); Red Cell Distribution Width 15.4 % (12.1-15.1); White Blood Count 16.05 10^3/uL (3.29-11.43)
[2024-03-08 10:20] LABS: Thyroid Stimulating Hormone 0.68 uIU/mL (0.27-4.20); Tumor Marker Alpha Fetoprotein 213.9 ng/mL (0-8.3)
[2024-03-08 10:31] LABS: Alanine Aminotransferase 404 U/L (0-41); Albumin Level 3.5 g/dL (3.5-5.2); Alkaline Phosphatase 410 U/L (40-130); Blood Urea Nitrogen 39 mg/dL (8-23); Calcium 8.8 mg/dL (8.5-10.5); Carbon Dioxide 19 mmol/L (22-29); Chloride 96 mmol/L (98-107); Creatinine Clr Calc Pharmacy 69.5471; Globulin 3.1 g/dL (1.3-4.6); Glucose 450 mg/dL (65-115); Osmolality Calculated 299 mOsm/kg (285-295); Sodium 130 mmol/L (136-145); Total Bilirubin 0.5 mg/dL (0.15-1.2); Total Protein 6.6 g/dL (6.6-8.7)
[2024-03-08 10:36] LABS: Aspartate Amino Transferase 179 U/L (0-40)
[2024-03-08] MEDS: durvalumab 1,500 MG in sodium chloride 0.9% 250 ML 280 MG IV (12:42)
[2024-03-08] MEDS: zoledronic acid (Zometa) 4 MG/100 ML PIGGYBACK 400 MG IV (13:51)
[2024-03-08 14:26] VITALS: BP 124/81; PULSE 103; RESP 16; TEMP 36.6; O2SAT 97
--- NOTE | 2024-03-16 08:00 | CT_ITS ---
WS: [id number] CT CHEST, ABDOMEN, AND PELVIS TECHNIQUE: Contrast-enhanced CT of the chest, abdomen, and pelvis with coronal and sagittal reformatt ed images. CLINICAL INFORMATION: SURVEILANCE COMPARISON: 12/11/2023 and 01/03/2024 DLP: 640.[address] scans at [facility] use at least one of these dose optimization techniques: automated e xposure control; mA and/or kV adjustment per patient size (includes targeted exams where dose is matc hed to clinical indication); or iterative reconstruction. CT CHEST: Lungs are well aerated. No suspicious pulmonary parenchymal abnormalities. No evidence of m etastatic disease in the lungs. No mediastinal or hilar lymphadenopathy. Normal caliber thoracic aort a. Proximal main pulmonary arteries are normal. A few tiny thyroid nodules. No axillary lymphadenopat hy. Suspicious sclerosis in the midthoracic spine new from 12/11/2023 compatible with metastatic disease. This involves the T8, T9 and T10 vertebral bodies. Increased foci in this area were seen on the recen t PET/CT. This could be further evaluated with bone scan and/or follow-up PET/CT. CT ABDOMEN AND PELVIS: Similar appearing enhancing multinodular liver with innumerable enhancing nodules also seen on the re cent PET/CT compatible with history of HCC. Cirrhotic nodular configuration to the liver. Hepatomegal y has increased with slightly more bulky disease today suspicious for slight diffuse progression. Thi s is best appreciated on the coronal imaging. Portal vein and splenic vein are patent. Fatty atrophy of the pancreas. Normal spleen. Small splenule . Normal GE junction. Adrenal glands are normal. No hydronephrosis in either kidney. Stable renal cys ts larger on the LEFT. Normal caliber abdominal aorta. Celiac and SMA are patent. Adrenal glands are normal. Few prominent jay hepatis lymph nodes unchanged. Lobulated urine distended bladder. Enhancing nodular prostate measuring 3.3 x 4.4 cm. Recommend corre lation PSA. Suspected bladder outlet obstruction. Sigmoid diverticulosis. Mild constipation. No abdominal or pelvic lymphadenopathy. No inguinal lympha denopathy. Prior vertebroplasty L1 with mild retropulsion unchanged. IMPRESSION: 1. No suspicious pulmonary parenchymal opacities. 2. New sclerotic lesions visualized in the thoracic spine compatible with metastatic disease. This a ppears similar to the prior PET/CT involving T8, T9, T10 vertebral bodies. This is progressed since . This could be further evaluated with bone scan 3. Enhancing multinodular liver with history of HCC. Hepatomegaly is slightly progressed today with suggestion of slightly progressed disease volume compared to the prior studies 4. No adenopathy in the abdomen or pelvis. 5. Sigmoid diverticulosis. 6. Enlarged prostate with evidence of bladder outlet obstruction. Recommend correlation PSA. 7. Stable L1 vertebroplasty changes.
[2024-03-16] MEDS: iohexol 350 mg/mL 500 mL Btl (per mL) IV (08:39)
== END 2024-03-27 23:59 | disposition home or self-care (01) ==
LOC: ONCMED 08:35
PROVIDERS: Internal Medicine; PCP Family Medicine; Visit Provider Nurse Practitioner Family
DX: C22.0 Liver cell carcinoma; M89.9 Disorder of bone, unspecified; N40.0 Benign prostatic hyperplasia without lower urinary tract symptoms; K57.90 Diverticulosis of intestine, part unspecified, without perforation or abscess without bleeding; Z53.9 Procedure and treatment not carried out, unspecified reason
CPT/HCPCS: 71260; 74177; 80053; 82105; 84443; 85025; 96367; 96372; 96413; 99214; A4222; J1100; J3489; J7050; J9173; Q9967

== ENCOUNTER 2024-03-17 21:10 | Emergency (ER) | payer MEDICARE, SELFPAY ==
[2024-03-17 21:44] VITALS: BP 100/64; PULSE 130; RESP 20; TEMP 36.7; O2SAT 99; BMI 20.9
--- NOTE | 2024-03-17 23:11 | ED_ITS ---
HPI - Back Pain/Injury 2 General: Chief Complaint: Back Pain/Injury Stated Complaint: Back Pain Time Seen by Provider: 03/17/24 23:11 History of Present Illness: Patient presents to the ER with complaints of full body itching and burning pain. Patient has a diagnosis of hepatocellular carcinoma. Patient sees Dr. Ardon for treatment. Patient is failed multiple medicines. Patient also states he has back pain but has Dilaudid for this and this is tolerable. He is here mainly for the itching. 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 GERD without esophagitis Essential tremor Social History Smoking and tobacco/nicotine status: former use of tobacco/nicotine Quit status (tobacco/nicotine): has quit using Year quit tobacco: 1971 Former quit date comment: total tobacco use 5-7 years Alcohol intake: current Substance/Drug Use: never Physical Exam 2 Const: COMMON NORMALS: no acute distress, average body habitus, patient oriented x3, no limitations, healthy appearing, alert and well nourished Neck/C-Spine: COMMON NORMALS: no JVD Chest: COMMONS NORMALS: normal inspection of the chest and normal palpation of entire chest wall Resp: COMMON NORMALS: normal respiratory effort, No retractions, No use of accessory muscles and clear to auscultation bilaterally AUSCULTATION: clear to auscultation bilaterally Cardio: COMMON NORMALS: no JVD, regular rate, regular rhythm, S1 normal heart sound present, S2 normal heart sound present, No gallops present (Cardio), No clicks present (Cardio), No murmurs present (Cardio) and No rub (Cardio) R ATE: regular rate RHYTHM: regular rhythm HEART SOUNDS: S1 normal heart sound present and S2 normal heart sound present GI: COMMON NORMALS: Normal to inspection, nondistended, normoactive bowel sounds present, Soft to palpation and no masses PALPATION: Yes Soft to palpation Neuro: COMMON NORMALS: patient oriented x3 SENSORIUM/ORIENTATION: Yes alert Course 2 Vital Signs: Vital signs: Vital Signs Temperature 98.0 F 03/17/24 21:44 Pulse Rate 123 H 03/18/24 00:14 Respiratory Rate 20 H 03/18/24 00:14 Blood Pressure 123/83 03/18/24 00:14 Pulse Oximetry 93 03/18/24 00:14 Oxygen Delivery Me thod Room Air 03/18/24 00:14 MDM - Back Pain/Injury Medical Decision Making Patient has a complicated history of hepatocellular carcinoma with pruritus. Patient is failed multiple different medicines. Upon literature search are several that we could try. We chose Zoloft because of the low side effects. Patient be started on 25 mg Zoloft and referred back to his PCP or oncologist to titrate up as needed. Differential Diagnosis Unlikely lumbar radiculopathy, sciatica, strain of lumbar region, renal colic, pyelonephritis, thoracic back pain or AAA Medical Records I reviewed the patient's medical records. Labs I reviewed the patient's lab results. 03/18/24 00:00 03/18/24 00:00 Laboratory Results WBC 5.35 10^3/uL (3.29-11.43) 03/18/24 00:00 RBC 4.31 10^6/uL (3.85-5.65) 03/18/24 00:00 Hgb 13.50 g/dL (11.27-16.99) 03/18/24 00:00 Hct 39.6 % (37-53) 03/18/24 00:00 MCV 91.9 fl (82-101) 03/18/24 00:00 MCH 31.3 pg (27-33) 03/18/24 00:00 MCHC 34.1 g/dL (30-55) 03/18/24 00:00 RDW 15.2 % (12.1-15.1) H 03/18/24 00:00 Plt Count 166 10^3/cmm (157-399) 03/18/24 00:00 MPV 11.0 fL (7.4-10.4) H 03/18/24 00:00 Neut % (Auto) 63.4 % 03/18/24 00:00 Lymph % (Auto) 25.2 % 03/18/24 00:00 [place] % (Auto) 6.9 % 03/18/24 00:00 Eos % (Auto) 2.1 % 03/18/24 00:00 Baso % (Auto) 0.9 % 03/18/24 00:00 Neut # (Auto) 3.39 10^3/uL (1.8-7.7) 03/18/24 00:00 Lymph # (Auto) 1.4 10^3/uL (0.8-4.8) 03/18/24 00:00 [place] # (Auto) 0.4 10^3/uL (0.2-0.9) 03/18/24 00:00 Eos # (Auto) 0.1 10^3/uL (0.0-0.8) 03/18/24 00:00 Baso # (Auto) 0.1 10^3/uL (0.0-0.1) 03/18/24 00:00 Nucleated RBC % (auto) 0 % 03/18/24 00:00 Nucleated RBCs # 0.0 /100WBC 03/18/24 00:00 Sodium 124 mmol/L (136-145) L 03/18/24 00:00 Potassium 4.7 mmol/L (3.5-5.1) 03/18/24 00:00 Chloride 93 mmol/L (98-107) L 03/18/24 00:00 Carbon Dioxide 21 mmol/L (22-29) L 03/18/24 00:00 Anion Gap 14.7 (5-19) 03/18/24 00:00 BUN 17 mg/dL (8-23) 03/18/24 00:00 Creatinine 0.8 mg/dL (0.7-1.2) 03/18/24 00:00 GFR Calculation Not Reportable 03/18/24 00:00 Glucose 189 mg/dL (65-115) H 03/18/24 00:00 Calculated Osmolality 265 mOsm/kg (285-295) L 03/18/24 00:00 Calcium 8.1 mg/dL (8.5-10.5) L 03/18/24 00:00 Total Bilirubin 0.5 mg/dL (0.15-1.2) 03/18/24 00:00 AST 156 U/L (0-40) H 03/18/24 00:00 ALT 215 U/L (0-41) H 03/18/24 00:00 Alkaline Phosphatase 559 U/L (40-130) H 03/18/24 00:00 Total Protein 6.5 g/dL (6.6-8.7) L 03/18/24 00:00 Albumin 3.2 g/dL (3.5-5.2) L 03/18/24 00:00 Globulin 3.3 g/dL (1.3-4.6) 03/18/24 00:00 No radiology studies performed this visit Discharge Plan Discharge Patient Disposition: Home Clinical Impression: Hepatocellular carcinoma, Pruritus Condition: Stable Prescriptions: New sertraline 25 mg tablet 25 mg PO DAILY Qty: 30 0RF No Action doxepin 25 mg capsule 25 mg PO DAILY Qty: 30 0RF fluconazole 100 mg tablet 100 mg PO DAILY 14 Days Qty: 14 0RF (DME) lancets [Embrace Lancets] 30 gauge misc See Rx Instructions .ROUTE .MEDSUPPLY Qty: 100 Rx Instructions: As directed zolpidem [Ambien] 10 mg tablet 10 mg PO ONCE Qty: 7 0RF omeprazole 20 mg capsule,delayed release(DR/EC) 20 mg PO DAILY Qty: 90 3RF famotidine 40 mg tablet 40 mg PO BID Qty: 60 5RF (DME) diabetic supplies, miscellan. Misc See Rx Instructions .Route Qty: 1 0RF Rx Instructions: As directed Glucometer, 90 lancets and strips hydromorphone 2 mg tablet 2 mg PO Q3H MDD 8 tablets Daily Multi-Vitamin Tablet 1 tab PO DAILY ibuprofen 200 mg Tablet 400 mg PO Q6H PRN (Reason: Pain) Discharge Orders: Discharge ED (Routine); Ordered 03/18/24 Ordered By: David Skaggs Referrals: Beau Francis MD [Primary Care Provider] - 1 week Patient Instructions: Itchy Skin (ED) Activity Restrictions/Additional Instructions: You have been started on Zoloft for your pruritus secondary to your hepatocellular carcinoma. This takes a while to build up in your system and may be needed at a higher dose. Please follow-up with your oncologist or primary care physician for further evaluation and treatment and titration of this medicine. Coding Level of Care Code ED [employer] Apprentice for Bridger Brown
[2024-03-18] MEDS: sertraline 50 mg Tablet 25 MG PO (00:12)
[2024-03-18] MEDS: cetirizine 10 mg Tablet PO (00:13)
[2024-03-18 00:14] VITALS: BP 123/83; PULSE 123; RESP 20; O2SAT 93
[2024-03-18 00:41] LABS: Alanine Aminotransferase 215 U/L (0-41); Albumin Level 3.2 g/dL (3.5-5.2); Alkaline Phosphatase 559 U/L (40-130); Anion Gap 14.7 (5-19); Aspartate Amino Transferase 156 U/L (0-40); Blood Urea Nitrogen 17 mg/dL (8-23); Calcium 8.1 mg/dL (8.5-10.5); Carbon Dioxide 21 mmol/L (22-29); Chloride 93 mmol/L (98-107); Creatinine Clr Calc Pharmacy 68.7409; Globulin 3.3 g/dL (1.3-4.6); Glucose 189 mg/dL (65-115); Osmolality Calculated 265 mOsm/kg (285-295); Potassium 4.7 mmol/L (3.5-5.1); Sodium 124 mmol/L (136-145); Total Bilirubin 0.5 mg/dL (0.15-1.2); Total Protein 6.5 g/dL (6.6-8.7)
[2024-03-18 00:49] LABS: Basophils # 0.1 10^3/uL (0.0-0.1); Basophils % 0.9 %; Eosinophils # 0.1 10^3/uL (0.0-0.8); Eosinophils % 2.1 %; Hematocrit 39.6 % (37-53); Lymphocytes # 1.4 10^3/uL (0.8-4.8); Lymphocytes % 25.2 %; Mean Corpuscular HGB Conc 34.1 g/dL (30-55); Mean Corpuscular Hemoglobin 31.3 pg (27-33); Mean Corpuscular Volume 91.9 fl (82-101); Monocytes # 0.4 10^3/uL (0.2-0.9); Monocytes % 6.9 %; Neutrophils # 3.39 10^3/uL (1.8-7.7); Neutrophils % 63.4 %; Nucleated Red Blood Cells % 0 %; Platelet Count 166 10^3/cmm (157-399); Red Blood Count 4.31 10^6/uL (3.85-5.65); Red Cell Distribution Width 15.2 % (12.1-15.1); White Blood Count 5.35 10^3/uL (3.29-11.43)
== END 2024-03-18 01:21 | disposition home or self-care (01) ==
PROVIDERS: Emergency Provider Emergency Medicine; PCP Family Medicine
DX: C22.0 Liver cell carcinoma (principal); L29.9 Pruritus, unspecified; Z87.891 Personal history of nicotine dependence
CPT/HCPCS: 36415; 80053; 85025; 99283

== ENCOUNTER 2024-03-18 15:13 | Emergency (ER) | payer MEDICARE, SELFPAY ==
[2024-03-18 15:17] VITALS: BP 122/79; PULSE 105; RESP 18; TEMP 36.6; O2SAT 99; BMI 20.9
--- NOTE | 2024-03-18 15:24 | W.ED.SKABFB ---
HPI - Skin/Abscess/Foreign Bdy General: Chief complaint: Skin/Abscess/Foreign Body Stated complaint: back itches/burning Time Seen by Provider: 03/18/24 15:23 History of Present Illness: 78-year-old male patient comes in today with itching and generalized pain. Patient reports for the last 6 weeks he has been unable to rest due to the chronic itching and burning. Patient has hepatocarcinoma with metastasis. Patient has had trial with colestyramine, lorazepam, Chlor-Trimeton, Benadryl, Zyrtec, famotidine with minimal to no relief. Patient at this time is not taking hydromorphone. Patient does admit that he feels at his wits end and just needs some rest. On [address] Francis had seen the patient and prescribe some Ambien but patient did not tolerate. Patient was seen yesterday in the emergency room and was started on sertraline with no significant changes. Patient was also put on some Zyrtec at the same time. No rashes noted. 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 GERD without esophagitis Essential tremor Social History Smoking and tobacco/nicotine status: former use of tobacco/nicotine Quit status (tobacco/nicotine): has quit using Year quit tobacco: 1971 Former quit date comment: total tobacco use 5-7 years Alcohol intake: current Substance/Drug Use: never Physical Exam Const: COMMON NORMALS: alert HENMT: COMMON NORMALS: normocephalic HEAD & SCALP: normocephalic Neck/C-Spine: COMMON NORMALS: full ROM Resp: COMMON NORMALS: normal respiratory effort and clear to auscultation bilaterally AUSCULTATION: clear to auscultation bilaterally Cardio: COMMON NORMALS: regular rate and regular rhythm RATE: regular rate RHYTHM: regular rhythm GI: COMMON NORMALS: Soft to palpation and non-tender PALPATION: Yes Soft to palpation Back/Pelvis: COMMON NORMALS: thoracic and lumbar spine normal to inspection Extremity: COMMON NORMALS: full ROM Neuro: SENSORIUM/ORIENTATION: Yes alert Psych: COMMON NORMALS: Normal thought process present, cooperative and speech normal APPEARANCE: Yes grossly normal ATTITUDE: Yes calm and Yes Withdrawn affect present ACTIVITY/MOTOR BEHAVIOR: Yes appropriate eye contact SPEECH: Yes normal speech MOOD & AFFECT: Yes depressed mood THOUGHT PROCESS: Normal thought process present INSIGHT: Fair insight present (Psych) JUDGEMENT: Fair judgement present (Psych) Skin: COMMON NORMALS: turgor normal; negative for no jaundice GENERAL SKIN EXAM: turgor normal Course Vital Signs: Vital signs: Vital Signs Temperature 97.9 F 03/18/24 15:17 Pulse Rate 105 H 03/18/24 15:17 Respiratory Rate 18 03/18/24 15:17 Blood Pressure 122/79 03/18/24 15:17 Pulse Oximetry 99 03/18/24 15:17 Oxygen Delivery Me thod Room Air 03/18/24 15:17 MDM - Skin/Abscess/Foreign Bdy Medicial Decision Making 78-year-old male patient comes in today for complaints of generalized itching. Patient has a history of hepatocarcinoma with metastasis. Review of the record notes that patient has a poor outcome with minimal treatment options. Skin is warm and dry color is pink. No rashes noted. Differential diagnosis is major depressive disorder, pruritus secondary to liver disease, anxiety disorder, hyponatremia, liver failure. Laboratory values noted improvement of sodium from yesterday. No other significant abnormalities were noted on labs. Patient was given 1 L of IV fluid, 2-1/2 mg of Haldol, and 25 mg of Benadryl with minimal relief of itching. Recommended hydroxyzine 50 mg to see if that might be helpful with patient's itching. I also strongly recommended patient follow-up with primary care in the morning for other recommendations of patient's discomfort. I believe some of this may be secondary to depression and patient's untreatable cancer. Patient and spouse at this time understand. Lab Data 03/18/24 16:06 03/18/24 16:06 Laboratory Results WBC 5.39 10^3/uL (3.29-11.43) 03/18/24 16:06 RBC 4.10 10^6/uL (3.85-5.65) 03/18/24 16:06 Hgb 12.60 g/dL (11.27-16.99) 03/18/24 16:06 Hct 36.5 % (37-53) L 03/18/24 16:06 MCV 89.0 fl (82-101) 03/18/24 16:06 MCH 30.7 pg (27-33) 03/18/24 16:06 MCHC 34.5 g/dL (30-55) 03/18/24 16:06 RDW 15.1 % (12.1-15.1) 03/18/24 16:06 Plt Count 169 10^3/cmm (157-399) 03/18/24 16:06 MPV 10.3 fL (7.4-10.4) 03/18/24 16:06 Neut % (Auto) 58.9 % 03/18/24 16:06 Lymph % (Auto) 28.6 % 03/18/24 16:06 [place] % (Auto) 8.2 % 03/18/24 16:06 Eos % (Auto) 2.4 % 03/18/24 16:06 Baso % (Auto) 0.6 % 03/18/24 16:06 Neut # (Auto) 3.18 10^3/uL (1.8-7.7) 03/18/24 16:06 Lymph # (Auto) 1.5 10^3/uL (0.8-4.8) 03/18/24 16:06 [place] # (Auto) 0.4 10^3/uL (0.2-0.9) 03/18/24 16:06 Eos # (Auto) 0.1 10^3/uL (0.0-0.8) 03/18/24 16:06 Baso # (Auto) 0.0 10^3/uL (0.0-0.1) 03/18/24 16:06 Nucleated RBC % (auto) 0 % 03/18/24 16:06 Nucleated RBCs # 0.0 /100WBC 03/18/24 16:06 Sodium 125 mmol/L (136-145) L 03/18/24 16:06 Potassium 4.7 mmol/L (3.5-5.1) 03/18/24 16:06 Chloride 96 mmol/L (98-107) L 03/18/24 16:06 Carbon Dioxide 20 mmol/L (22-29) L 03/18/24 16:06 Anion Gap 13.7 (5-19) 03/18/24 16:06 BUN 16 mg/dL (8-23) 03/18/24 16:06 Creatinine 0.6 mg/dL (0.7-1.2) L 03/18/24 16:06 GFR Calculation Not Reportable 03/18/24 16:06 Glucose 160 mg/dL (65-115) H 03/18/24 16:06 Calculated Osmolality 265 mOsm/kg (285-295) L 03/18/24 16:06 Calcium 7.7 mg/dL (8.5-10.5) L 03/18/24 16:06 Total Bilirubin 0.5 mg/dL (0.15-1.2) 03/18/24 16:06 AST 117 U/L (0-40) H 03/18/24 16:06 ALT 185 U/L (0-41) H 03/18/24 16:06 Alkaline Phosphatase 525 U/L (40-130) H 03/18/24 16:06 Total Protein 6.1 g/dL (6.6-8.7) L 03/18/24 16:06 Albumin 3.2 g/dL (3.5-5.2) L 03/18/24 16:06 Globulin 2.9 g/dL (1.3-4.6) 03/18/24 16:06 No radiology studies performed this visit Discharge Plan Discharge Patient Disposition: Home Clinical Impression: Cholestatic pruritus Condition: Stable Prescriptions: New hydroxyzine pamoate 50 mg capsule 50 mg PO Q6H PRN (Reason: itching) Qty: 20 0RF No Action (DME) lancets [Embrace Lancets] 30 gauge misc See Rx Instructions .ROUTE .MEDSUPPLY Qty: 100 Rx Instructions: As directed omeprazole 20 mg capsule,delayed release(DR/EC) 20 mg PO DAILY Qty: 90 3RF famotidine 40 mg tablet 40 mg PO BID Qty: 60 5RF sertraline 25 mg tablet 25 mg PO DAILY Qty: 30 0RF (DME) diabetic supplies, miscellan. Misc See Rx Instructions .Route Qty: 1 0RF Rx Instructions: As directed Glucometer, 90 lancets and strips multivitamin [Daily Multi-Vitamin] Tablet 1 tab PO DAILY ibuprofen 200 mg Tablet 400 mg PO Q6H PRN (Reason: Pain) cetirizine 10 mg tablet 10 mg PO DAILY PRN (Reason: ALLERGIES) Discharge Orders: Discharge ED (Routine); Ordered 03/18/24 Ordered By: Viral Rajput Referrals: Beau Francis MD [Primary Care Provider] - Discharge Diet: Usual diet Discharge Activity: Increase activity as tolerated Patient Instructions: Itching - Oncology Activity Restrictions/Additional Instructions: Try the hydroxyzine 50 mg every 6 hours as needed for itching. Drink plenty of water and fluids. Use a good emollient lotion. Follow-up with primary care, Dr. Francis, in the morning for further recommendations of treatment. Coding Level of Care Code ED Radio Interference Trouble Shooter for Bridger Brown
[2024-03-18 16:11] LABS: Basophils % 0.6 %; Eosinophils # 0.1 10^3/uL (0.0-0.8); Eosinophils % 2.4 %; Hematocrit 36.5 % (37-53); Lymphocytes # 1.5 10^3/uL (0.8-4.8); Lymphocytes % 28.6 %; Mean Corpuscular HGB Conc 34.5 g/dL (30-55); Mean Corpuscular Hemoglobin 30.7 pg (27-33); Mean Platelet Volume 10.3 fL (7.4-10.4); Monocytes # 0.4 10^3/uL (0.2-0.9); Monocytes % 8.2 %; Neutrophils # 3.18 10^3/uL (1.8-7.7); Neutrophils % 58.9 %; Nucleated Red Blood Cells % 0 %; Platelet Count 169 10^3/cmm (157-399); Red Cell Distribution Width 15.1 % (12.1-15.1); White Blood Count 5.39 10^3/uL (3.29-11.43)
[2024-03-18] MEDS: diphenhydrAMINE 50 mg/mL SDV 1mL 25 MG IVP (16:25)
[2024-03-18] MEDS: haloperidol inj 5 mg/mL INJ 1 mL 2.5 MG IVP (16:25)
[2024-03-18] MEDS: sodium chloride 0.9% 1,000 ML 999 ML IV (16:26)
[2024-03-18 16:29] LABS: Alanine Aminotransferase 185 U/L (0-41); Albumin Level 3.2 g/dL (3.5-5.2); Alkaline Phosphatase 525 U/L (40-130); Anion Gap 13.7 (5-19); Aspartate Amino Transferase 117 U/L (0-40); Blood Urea Nitrogen 16 mg/dL (8-23); Calcium 7.7 mg/dL (8.5-10.5); Carbon Dioxide 20 mmol/L (22-29); Chloride 96 mmol/L (98-107); Creatinine Clr Calc Pharmacy 68.7409; Globulin 2.9 g/dL (1.3-4.6); Glucose 160 mg/dL (65-115); Osmolality Calculated 265 mOsm/kg (285-295); Potassium 4.7 mmol/L (3.5-5.1); Sodium 125 mmol/L (136-145); Total Bilirubin 0.5 mg/dL (0.15-1.2); Total Protein 6.1 g/dL (6.6-8.7)
[2024-03-18 16:35] LABS: Slide Review Slide Review Perform
== END 2024-03-18 18:41 | disposition home or self-care (01) ==
PROVIDERS: Emergency Provider Nurse Practitioner Family; PCP Family Medicine
DX: L29.8 Other pruritus (principal); Z85.05 Personal history of malignant neoplasm of liver; Z85.830 Personal history of malignant neoplasm of bone; Z87.891 Personal history of nicotine dependence; C22.0 Liver cell carcinoma; L29.9 Pruritus, unspecified
CPT/HCPCS: 80053; 85025; 96374; 96375; 99284; J1200; J1630; J7030; J9999